=== PATIENT | male | born 1955 | race Caucasian/White ===

== ENCOUNTER → 2017-11-17 | Outpatient (CLI) | payer BC, SELFPAY | PROVIDERS: Family Provider Family Medicine; Referring Provider Family Medicine; Visit Provider Family Medicine | DX: R05 Cough (principal) | CPT/HCPCS: 71020 ==

== ENCOUNTER → 2017-12-08 09:21 | Outpatient (CLI) | payer BC, SELFPAY ==
[2017-12-08 09:44] LABS: Basophils % 0.5 % (0.1-2.0); Eosinophils # 0.2 K/mm3 (0.0-0.4); Eosinophils % 3.5 % (0.1-12.0); Hematocrit 46.1 % (42.0-52.0); Lymphocytes # 0.8 K/mm3 (0.7-4.5); Mean Corpuscular HGB Conc 34.8 g/dL (31.8-35.4); Mean Corpuscular Hemoglobin 31.3 pg (27.0-31.2); Mean Platelet Volume 7.2 fl (7.4-10.4); Monocytes # 0.3 K/mm3 (0.1-1.0); Monocytes % 6.8 % (1.7-9.3); Neutrophils # 3.1 K/mm3 (1.8-7.8); Neutrophils % 71.2 % (37.0-80.0); Platelet Count 235 K/mm3 (142-424); Red Blood Count 5.12 M/mm3 (4.60-6.20); White Blood Count 4.3 K/mm3 (4.8-10.8)
[2017-12-08 11:07] LABS: Alanine Aminotransferase 24 U/L (12-78); Albumin Level 3.9 gm/dL (3.4-5.0); Albumin/Globulin Ratio 1.6 (1.1-1.8); Alkaline Phosphatase 87 U/L (46-116); Anion Gap 11.3 mEq/L (5-15); Aspartate Amino Transferase 18 U/L (15-37); Bilirubin,Total 0.7 mg/dL (0.2-1.0); Blood Urea Nitrogen 11 mg/dL (7-18); Calcium 9.6 mg/dL (8.5-10.1); Carbon Dioxide 27 mmol/L (21.0-32.0); Chloride 107 mmol/L (98-107); Chol/HDL Ratio 3.8 (1-3.5); Cholesterol 251 mg/dL (140-200); Creatinine,Serum 0.77 mg/dL (0.70-1.30); Estimated Glomerular Filt Rate 103 ml/min (>60); GFR (African American) 125 ML/MIN (>60); Globulin 2.5 gm/dl (1.3-3.2); Glucose 91 mg/dL (74-106); HDL Cholesterol 66 mg/dL (27-67); LDL Cholesterol 170 mg/dL (0-130); Potassium 4.3 mmoL/L (3.5-5.1); Sodium 141 mmol/L (136-145); Total Protein,Serum 6.4 gm/dL (6.4-8.2); Triglycerides 76 mg/dL (30-200); VLDL Cholesterol 15 mg/dL (0-40)
== END ==
PROVIDERS: PCP Family Medicine; Visit Provider Family Medicine
DX: E78.00 Pure hypercholesterolemia, unspecified (principal); D69.6 Thrombocytopenia, unspecified
CPT/HCPCS: 36415; 80053; 80061; 85025

== ENCOUNTER 2018-02-18 08:56 | Day surgery (SDC) | payer BC, OTHER, SELFPAY ==
[2018-02-13 10:20] VITALS: BMI 24.0
[2018-02-18] VITALS (8 sets, daily range): BP systolic 100–134; BP diastolic 62–92; PULSE 67–86; RESP 18; TEMP 36.4–36.8; O2SAT 96–99
--- NOTE | 2018-02-18 11:21 | HMH.PROC ---
[facility] Procedure Note Procedure Note:: Colonoscopy Procedure Report: Colonoscopy with cold snare polypectomy Endoscopist: Hesham Mcqueen II, MD Referring physician: Greg Ham MD Date of Procedure: February 18, 2018 Equipment: Olympus 180 variable stiffness pediatric colonoscope Sedation: MAC sedation Indication: Mr. Palacios is a 62-year-old gentleman who is here for initial screening colonoscopy. He reports no abdominal pain, weight loss, change in his bowel habits or rectal bleeding. He reports no family history of colon cancer. Procedure: Prior to the procedure, a history and physical exam was performed, and patient's medications and allergies were reviewed. The risks, benefits and alternatives of the sedation and procedure were discussed with the patient. All questions were answered and informed consent was obtained. The patient was brought to the procedure room. Patient identification and proposed procedure were verified by the physician and the nurse. The patient was placed in a left lateral decubitus position and the scope was passed under direct vision. Throughout the procedure, the patient's blood pressure, pulse, and oxygen saturations were monitored continuously. The colonoscopy was accomplished without difficulty. The patient tolerated the procedure well. Findings: On digital rectal examination there was normal rectal tone. There were no external hemorrhoids. The prostate was 2+, smooth, soft, symmetric without nodules. The colonoscope was introduced through the anal canal to the rectum and advanced to the cecum. The ileocecal valve and appendiceal orifice were identified. The scope was advanced a short distance into the ileum which appeared grossly normal. The scope was then withdrawn into the colon. There was a single 5 mm ascending polyp that was removed via cold snare polypectomy (polyp removed but not retrieved). The remaining cecum, ascending, transverse, descending, sigmoid and rectum were grossly normal. There were no mucosal abnormalities identified. Upon retroflexion within the rectum there were grade 2 internal hemorrhoids. Impression: 1. Diminutive ascending polyp 2. Grade 2 internal hemorrhoids Plan: This polyp was hyperplastic in appearance (by narrowband imaging) and would recommend repeat screening/surveillance colonoscopy again in 10 years. I would encourage fiber bulk supplementation on a long-term daily maintenance basis.
--- NOTE | 2018-02-18 11:25 | P.PCN_ITS ---
[facility] Procedure Note Procedure Note:: Colonoscopy Procedure Report: Colonoscopy with cold snare polypectomy Endoscopist: Hesham Mcqueen II, MD Referring physician: Greg Ham MD Date of Procedure: February 18, 2018 Equipment: Olympus 180 variable stiffness pediatric colonoscope Sedation: MAC sedation Indication: Mr. Palacios is a 62-year-old gentleman who is here for initial screening colonoscopy. He reports no abdominal pain, weight loss, change in his bowel habits or rectal bleeding. He reports no family history of colon cancer. Procedure: Prior to the procedure, a history and physical exam was performed, and patient' s medications and allergies were reviewed. The risks, benefits and alternatives of the sedation and procedure were discussed with the patient. All questions were answered and informed consent was obtained. The patient was brought to the procedure room. Patient identification and proposed procedure were verified by the physician and the nurse. The patient was placed in a left lateral decubitus position and the scope was passed under direct vision. Throughout the procedure, the patient's blood pressure, pulse, and oxygen saturations were monitored continuously. The colonoscopy was accomplished without difficulty. The patient tolerated the procedure well. Findings: On digital rectal examination there was normal rectal tone. There were no external hemorrhoids. The prostate was 2+, smooth, soft, symmetric without nodules. The colonoscope was introduced through the anal canal to the rectum and advanced to the cecum. The ileocecal valve and appendiceal orifice were identified. The scope was advanced a short distance into the ileum which appeared grossly normal. The scope was then withdrawn into the colon. There was a single 5 mm ascending polyp that was removed via cold snare polypectomy ( polyp removed but not retrieved). The remaining cecum, ascending, transverse, descending, sigmoid and rectum were grossly normal. There were no mucosal abnormalities identified. Upon retroflexion within the rectum there were grade 2 internal hemorrhoids. Impression: 1. Diminutive ascending polyp 2. Grade 2 internal hemorrhoids Plan: This polyp was hyperplastic in appearance (by narrowband imaging) and would recommend repeat screening/surveillance colonoscopy again in 10 years. I would encourage fiber bulk supplementation on a long-term daily maintenance basis.
--- NOTE | 2018-02-18 11:27 | SUR.OPER ---
POLYP IS NOT RECOVERED.
--- NOTE | 2018-02-18 15:38 | HMH.ANESCL ---
[facility] Anesthesia Checklist - Patient Identification Patient Identification: Arm Band - Structural Data Admitted From: Home Planned Operative Procedure/s: colonoscopy Consent for Planned Operative Procedure(s) Verified: Yes Verified Documents: Surgical Consent, History and Physical - NPO Status Verified Time NPO: 00:00 - Additional verifications Anesthesia Reactions: No - Airway Assessment C-Spine Mobility Assessed: Yes (mp2) TMJ Mobility Assessed: Yes Dentition: Good Dentition - Neurological Assessment Level of Consciousness: Awake, Alert - Anesthesia Plan Anesthesia Risk discussed: Yes Anesthesia Plan: Verified ASA Class: I Anesthesia Type: MAC [facility] Anesthesia HX I have reviewed the patient's past medical history: Yes Medical History: Denies:: Diabetes Mellitus Type 1, Diabetes Mellitus Type 2, Internal Pacemaker, Lung Disease, Seizures Other Surgeries: Yes: Appendectomy (chey,axillary cyst), Cardiac Catheterization. No: Pacemaker
== END 2018-02-18 12:20 | disposition home or self-care (01) ==
PROVIDERS: Family Provider Family Medicine; PCP Family Medicine; Visit Provider Internal Medicine Gastroenterology
PROC: 0DJD8ZZ Inspection of Lower Intestinal Tract, Via Natural or Artificial Opening Endoscopic (ICD-10-PCS; CPT 45378; principal; 2018-02-18 10:00)
DX: Z12.11 Encounter for screening for malignant neoplasm of colon (principal); K63.5 Polyp of colon; K64.1 Second degree hemorrhoids
CPT/HCPCS: 45385

== ENCOUNTER 2018-10-16 09:38 | Inpatient (IN) ==
--- NOTE | 2018-10-16 09:49 | Emergency Department Note ---
ED Disposition Clinical Impression: Upper abdominal pain, Elevated liver enzymes Disposition: Still a Patient Condition on Discharge: Fair - Critical Care Critical Care Time: No Attestation: On 10/16/18, the high probability of a clinically significant, sudden or life threatening deterioration of the following system(s) required my full and direct attention, intervention and personal management. The time I documented below is in addition to time spent performing reported procedures but includes the following listed in this critical care notation. Medical Decision Making - Nikhil Inquiry Pt receiving controlled substance: No Vital Signs: 10/16/18 09:43 10/16/18 10:20 10/16/18 10:56 Temperature 98.3 F Temperature Source Oral Pulse Rate [Left Radial] 75 79 72 Respiratory Rate 20 Blood Pressure [Right Arm] 162/62 H 158/76 H 140/62 Blood Pressure Mean [Right Arm] 95 103 88 Blood Pressure Source [Right Arm] Automatic Cuff Automatic Cuff Automatic Cuff Blood Pressure Position [Right Arm] Sitting Sitting Sitting 02 Sat by Pulse Oximetry 97 97 97 Oxygen Delivery Method Room Air Room Air Room Air - Lab Data Lab Results 10/16/18 10:03: WBC 10.1, RBC 4.88, Hgb 15.6, Hct 46.6, MCV 95.5 H, MCH 31.9 H, MCHC 33.4, RDW 13.6, Plt Count 240, MPV 6.9 L, Neut % (Auto) 90.6 H, Lymph % (Auto) 4.8 L, [place] % (Auto) 4.1, Eos % (Auto) 0.4, Baso % (Auto) 0.1, Neut # (Auto) 9.1 H, Lymph # (Auto) 0.5 L, [place] # (Auto) 0.4, Eos # (Auto) 0.0, Baso # (Auto) 0.0, Total Counted 100, Neutrophils % (Manual) 91 H, Lymphocytes % (Manual) 4 L, Monocytes % (Manual) 5, Platelet Estimate Normal, RBC Morphology Normal 10/16/18 10:03: Sodium 140, Potassium 3.8, Chloride 103, Carbon Dioxide 29, Anion Gap 11.8, BUN 12, Creatinine 0.77, Estimated Creat Clear 102, Estimated GFR 103, Est GFR ( Amer) 124, Glucose 131 H, Calcium 10.4 H, Total Bilirubin 3.8 H, AST 779 H*, ALT 636 H*, Alkaline Phosphatase 146 H, Troponin I < 0.02, Total Protein 7.1, Albumin 3.9, Globulin 3.2, Albumin/Globulin Ratio 1.2, Amylase 37, Lipase 177 10/16/18 10:03: PT 9.5, INR 0.92 10/16/18 11:50: Urine Color [place], Urine Appearance Clear, Urine pH 7.0, Ur Specific [place] 1.015, Urine Protein Negative, Urine Glucose (UA) Negative, Urine Ketones Negative, Urine Blood Negative, Urine Nitrate Negative, Urine Bilirubin 2+ A, Urine Urobilinogen 1.0, Ur Leukocyte Esterase Negative, Urine RBC None, Urine WBC Occasional, Ur Squamous Epith Cells Occasional, Urine Bacteria 1+, Urine Mucus Trace Result diagrams: 10/16/18 10:03 10/16/18 10:03 Orders (Tests/Meds): ED MEDICATIONS Discontinued Medications Generic Name Dose Route Start Last Admin Trade Name Freq PRN Reason Stop Dose Admin Famotidine 20 mg 10/16/18 10:00 10/16/18 10:05 Pepcid 20mg/2ml Vial IV 10/16/18 10:01 20 mg ONCE ONE Administration Sodium Chloride 500 mls @ 999 mls/hr 10/16/18 10:00 10/16/18 10:05 Sod Chlor 0.9% 1000ml Bag IV 10/16/18 10:30 999 mls/hr .Q31M LIV Administration Ketorolac Tromethamine 30 mg 10/16/18 09:56 10/16/18 10:15 Toradol 30mg/Ml Vial IV 10/16/18 09:57 30 mg ONCE ONE Administration Metoclopramide HCl 5 mg 10/16/18 10:00 10/16/18 10:05 Reglan 10mg/2ml Vial IVP 10/16/18 10:01 5 mg ONCE ONE Administration Ondansetron HCl 4 mg 10/16/18 09:56 10/16/18 10:15 Zofran 4mg/2ml Vial IV 10/16/18 09:57 4 mg ONCE ONE Administration ORDERS Category Date Time Status Hepatitis Panel (4) Stat Lab 10/16/18 10:03 Received Urinalysis and Microscopic Stat Lab 10/16/18 11:50 Ordered - ECG Data Tracing #1 EKG interpreted by Jim Givens MD: Rhythm: sinus Rate: 76 [place]: normal Ectopy: none Conduction: normal ST Segment Changes: none T Wave Changes: none Q Waves: none No evidence of acute ischemia or injury Normal electrocardiogram - Physician Consults Physician Consulted: Frnac Time: 12:46 Reason -: Pt condition Comment/Response: Requests to admit the patient to the hospital. We discussed the patient's clinical information, including history, exam, laboratory and radiology results and ED course. Per hospital procedure, I will write temporary bridge inpatient orders on the patient. Specific orders requested by the admitting physician: IV fluids, follow hepatic enzymes, stop rosuvastatin - Reevaluation(s) Time: 12:30 Reevaluation #1: Patient states he feels "pretty good right now". Discussed results. Medical Decision Narrative: IMPRESSION: 1. No acute abdominal or pelvic findings. 2. Mildly enlarged prostate. Urinary bladder wall is slightly thickened could be due to chronic bladder outlet obstruction, contracted state, or underlying infection/inflammation. Dictated By: Rl King MD Signed By: <Electronically signed by Rl King MD in OV> 10/16/18 1216 General Adult HPI - General Chief complaint: Abdominal Pain Stated complaint: abdominal pain Time Seen by Provider: 10/16/18 10:00 Mode of Arrival: Ambulatory Limitations: No Limitations Description of Symptoms (Recalled from ER Triage Doc. by RN): PT states that he is having pain in his upper abdomen that runs all across his lower ribs that started t/o the night but has increased in pain this morning. Denies any n/v - History of Present Illness HPI narrative: Diffuse upper abdominal pain that started about 4:56 PM yesterday. Constant and persisted all night. Unable to sleep. Unable to eat today. Nausea, but no vomiting, diarrhea, constipation, or fever. Had a cholecystectomy last year, pain feels like his previous gallbladder pain. He is a nondrinker. Does not use NSAIDs regularly. - Related Data Home Medications Medication Instructions Recorded Confirmed Rosuvastatin Calcium 20 mg PO DAILY 10/16/18 10/16/18 Allergies Allergy/AdvReac Type Severity Reaction Status Date / Time No Known Allergies Allergy Verified 02/18/18 09:21 [facility] History I have reviewed the patient's past medical history: Yes Medical History: Denies:: Diabetes Mellitus Type 1, Diabetes Mellitus Type 2, Internal Pacemaker, Lung Disease, Seizures Other Surgeries: Yes: Appendectomy (chey,axillary cyst), Cardiac Catheterization. No: Pacemaker - Social History Alcohol Intake: current Alcohol Intake Frequency:: holidays/special occasions only - Psychiatric History Expresses thoughts of harming self/others: None Suicide Plan Description: No Plan ROS Obtained: Yes All systems reviewed & no additional complaints - Constitutional Constitutional: Denies fever(s) - Cardiovascular Cardiovascular: Denies chest pain - Respiratory Respiratory: No dyspnea - Gastrointestinal Gastrointestingal: Reports: abdominal pain, nausea. Denies: constipation, diarrhea, vomiting - Genitourinary Male Genitourinary: Denies difficulty urinating, Denies flank pain Physical Exam - General General appearance: alert, other (Appears uncomfortable) - Head Head exam: atraumatic, normocephalic - Eye Eye exam: Present: normal appearance, PERRL, EOMI - ENT ENT exam: Present: mucous membranes moist - Chest Chest inspection: Present: normal inspection, symmetric chest wall rise - Respiratory Respiratory exam: Present: normal lung sounds bilaterally. Absent: respiratory distress - Cardiovascular Cardiovascular exam: Present: regular rate, normal rhythm, normal heart sounds - Abdominal Exam Abdominal exam: Present: soft, tenderness. Absent: guarding, rebound, rigidity Abdominal tenderness: Present: RUQ, LUQ, epigastrium - Extremities Exam Extremities exam: Present: normal inspection - Neurological Exam Neurological exam: Present: alert, oriented X3 - Psychiatric Psychiatric exam: Present: normal affect, normal mood - Skin Skin exam: Present: warm, dry, pallor
[2018-10-16 10:14] LABS: Basophils % 0.1 % (0.1-2.0); Eosinophils % 0.4 % (0.1-12.0); Hematocrit 46.6 % (42.0-52.0); Hemoglobin 15.6 g/dL (14.1-18.0); Lymphocytes # 0.5 K/mm3 (0.7-4.5); Lymphocytes % 4.8 % (10-50); Mean Corpuscular HGB Conc 33.4 g/dL (31.8-35.4); Mean Corpuscular Hemoglobin 31.9 pg (27.0-31.2); Mean Corpuscular Volume 95.5 fl (80-94); Mean Platelet Volume 6.9 fl (7.4-10.4); Monocytes # 0.4 K/mm3 (0.1-1.0); Monocytes % 4.1 % (1.7-9.3); Neutrophils # 9.1 K/mm3 (1.8-7.8); Neutrophils % 90.6 % (37.0-80.0); Platelet Count 240 K/mm3 (142-424); Red Blood Count 4.88 M/mm3 (4.60-6.20); Red Cell Distribution Width 13.6 % (11.5-17.5); White Blood Count 10.1 K/mm3 (4.8-10.8)
[2018-10-16 10:38] LABS: Lymphocytes % 4 % (10-50); Monocytes % 5 % (2-9); Neutrophils % 91 % (42-76); RBC Morphology Normal; Total Cells Counted 100
[2018-10-16 10:39] LABS: Alanine Aminotransferase 636 U/L (12-78); Albumin Level 3.9 gm/dL (3.4-5.0); Albumin/Globulin Ratio 1.2 (1.1-1.8); Alkaline Phosphatase 146 U/L (46-116); Amylase 37 U/L (25-115); Anion Gap 11.8 mEq/L (5-15); Aspartate Amino Transferase 779 U/L (15-37); Bilirubin,Total 3.8 mg/dL (0.2-1.0); Blood Urea Nitrogen 12 mg/dL (7-18); Calcium 10.4 mg/dL (8.5-10.1); Carbon Dioxide 29 mmol/L (21.0-32.0); Chloride 103 mmol/L (98-107); Globulin 3.2 gm/dl (1.3-3.2); Glucose 131 mg/dL (74-106); Lipase 177 u/L (73-393); Potassium 3.8 mmoL/L (3.5-5.1); Sodium 140 mmol/L (136-145); Total Protein,Serum 7.1 gm/dL (6.4-8.2)
[2018-10-16 11:03] LABS: INR 0.92 (0.9-1.1); Prothrombin Time 9.5 seconds (9.4-11.8)
[2018-10-16 11:57] LABS: Microscopic, Urine URINE MICROSCOPIC (MICROSCOPIC)
[2018-10-16 12:13] LABS: Appearance,Urine CLEAR (Clear); Blood, Urine Negative (Negative); Color,Urine ORANGE (Yellow); Glucose,Urine (UA) Negative (Negative); Ketones,Urine Negative (Negative); Leukocyte Esterase,Urine Negative (Negative); Protein,Urine Negative (Negative); Specific Gravity, Urine 1.015 (1.005-1.030)
[2018-10-16 12:18] LABS: Bilirubin,Urine 2+ (Negative)
[2018-10-16 12:23] LABS: Bacteria,Urine 1+ /lpf; Mucus,Urine Trace /lpf; Squamous Epithelial Cell,Urine Occasional #/hpf (0-5); WBC,Urine Occasional #/hpf (0-3)
--- NOTE | 2018-10-16 13:40 | Pharmacy Consult Notes ---
[facility] Pharmacy VTE Monitoring - Patient Demographics Admission date: 10/16/18 Report Date: 10/16/18 Time: 13:40 Allergies/Adverse Reactions: Patient Allergies No Known Allergies Allergy (Verified 02/18/18 09:21) Height: 1.93 m Weight: 92.986 kg Patient Problems: Current Active Problems Upper abdominal pain (Acute) Elevated liver enzymes (Acute) - VTE Risk Labs: VTE Related Lab Results Hgb 15.6 g/dL (14.1-18.0) 10/16/18 10:03 Hct 46.6 % (42.0-52.0) 10/16/18 10:03 Plt Count 240 K/mm3 (142-424) 10/16/18 10:03 PT 9.5 seconds (9.4-11.8) 10/16/18 10:03 INR 0.92 (0.9-1.1) 10/16/18 10:03 BUN 12 mg/dL (7-18) 10/16/18 10:03 Creatinine 0.77 mg/dL (0.70-1.30) 10/16/18 10:03 Estimated Creat Clear 102 mL/min (50-200) 10/16/18 10:03 - Prophylaxis VTE Prophylaxis Ordered?: Yes Types of VTE Prophylaxis: TEDS Knee High Location of Applied Device: Bilateral Lower Extremeties
--- NOTE | 2018-10-16 14:06 | History & Physical Report ---
*Admission Date: 10/16/18 *Chief complaint: abdominal pain *History of present illness: Mr. Palacios is a 63yo male who began having diffuse upper abdominal pain around 4:56 PM yesterday. The patient has been constant and persisted all night. He was unable to sleep or eat today. He had had some nausea but no vomiting, diarrhea, constipation, or fever. Of note, he had a cholecystectomy last year, but he states the pain feels like his previous gallbladder pain. He is a nondrinker. Does not use NSAIDs regularly. His LFT's were elevated but his abdominal CT showed nothing acute. He will be admitted for further evaluation and treatment. [facility] History Medical History: Reports:: Coronary Artery Disease, Gall Bladder Disease, Hiatal Hernia, Hyperlipidemia Denies:: Diabetes Mellitus Type 1, Diabetes Mellitus Type 2, Internal Pacemaker, Lung Disease, Seizures Other Surgeries: Yes: Appendectomy (chey,axillary cyst), Cardiac Catheterization, Cholecystectomy. No: Pacemaker - *Social History Alcohol Intake: current Alcohol Intake Frequency:: holidays/special occasions only - Psychiatric History Expresses thoughts of harming self/others: None Suicide Plan Description: No Plan *Family Hx:: Coronary Artery Disease, Diabetes, Heart Attack, Hypertension, Stroke Review of Systems - Constitutional Denies chills, Denies fever(s) - Eyes Denies blurry vision, Denies double vision - ENT Denies nasal congestion, Denies sore throat - *Cardiovascular Denies chest pain, Denies rapid, pounding, or irregular heartbeat - *Respiratory Denies cough, Denies shortness of breath - *Gastrointestinal Reports abdominal pain (epigastric), Reports nausea, Denies loose stools, Denies vomiting - *Genitourinary Denies difficulty urinating, Denies painful urination - *Musculoskeletal Denies joint pain - *Neurologic Denies headache(s), Denies dizziness, Denies weakness Meds Home Medications Medication Instructions Recorded Confirmed Type Meloxicam 15 mg PO DAILY 10/16/18 10/16/18 History Omeprazole Magnesium [Prilosec Otc 20 mg PO DAILY 10/16/18 10/16/18 History 20mg Tab] Rosuvastatin Calcium 20 mg PO DAILY 10/16/18 10/16/18 History Allergies Allergy/AdvReac Type Severity Reaction Status Date / Time No Known Allergies Allergy Verified 02/18/18 09:21 Exam Vital signs and Labs for Last 24 Hours: Temp Pulse Resp BP Pulse Ox 98.9 F 91 H 18 144/93 H 97 10/16/18 13:52 10/16/18 13:52 10/16/18 13:52 10/16/18 13:52 10/16/18 13:52 Laboratory Results - last 24 hr 10/16/18 10:03: WBC 10.1, RBC 4.88, Hgb 15.6, Hct 46.6, MCV 95.5 H, MCH 31.9 H, MCHC 33.4, RDW 13.6, Plt Count 240, MPV 6.9 L, Neut % (Auto) 90.6 H, Lymph % (Auto) 4.8 L, [place] % (Auto) 4.1, Eos % (Auto) 0.4, Baso % (Auto) 0.1, Neut # (Auto) 9.1 H, Lymph # (Auto) 0.5 L, [place] # (Auto) 0.4, Eos # (Auto) 0.0, Baso # (Auto) 0.0, Total Counted 100, Neutrophils % (Manual) 91 H, Lymphocytes % (Manual) 4 L, Monocytes % (Manual) 5, Platelet Estimate Normal, RBC Morphology Normal 10/16/18 10:03: Sodium 140, Potassium 3.8, Chloride 103, Carbon Dioxide 29, Anion Gap 11.8, BUN 12, Creatinine 0.77, Estimated Creat Clear 102, Estimated GFR 103, Est GFR ( Amer) 124, Glucose 131 H, Calcium 10.4 H, Total Bilirubin 3.8 H, AST 779 H*, ALT 636 H*, Alkaline Phosphatase 146 H, Troponin I < 0.02, Total Protein 7.1, Albumin 3.9, Globulin 3.2, Albumin/Globulin Ratio 1.2, Amylase 37, Lipase 177 10/16/18 10:03: PT 9.5, INR 0.92 10/16/18 11:50: Urine Color [place], Urine Appearance Clear, Urine pH 7.0, Ur Specific [place] 1.015, Urine Protein Negative, Urine Glucose (UA) Negative, Urine Ketones Negative, Urine Blood Negative, Urine Nitrate Negative, Urine Bilirubin 2+ A, Urine Urobilinogen 1.0, Ur Leukocyte Esterase Negative, Urine RBC None, Urine WBC Occasional, Ur Squamous Epith Cells Occasional, Urine Bacter ia 1+, Urine Mucus Trace I & O for Last 24 hours: Intake & Output 10/14/18 10/15/18 10/16/18 10/17/18 11:59 11:59 11:59 11:59 Weight 205 lb 199 lb 8 oz - Constitutional no acute distress - *Routine HEENT Exam Head: Present: normocephalic Eye: Present: EOMI, PERRL ENT: Present: mucous membranes moist - *Routine Neck Exam Present: supple. Absent: lymphadenopathy - *Routine Respiratory Exam Present: CTA bilaterally - *Routine Cardiovascular Exam Present: RRR - *Routine Abdominal Exam Present: soft, normoactive bowel sounds, tenderness (epigastric area), distended. Absent: rebound, guarding - *Routine Extremities Exam Absent: cyanosis, clubbing, edema - *Routine Skin Exam Present: warm. Absent: rash - *Routine Neurological Exam Present: alert, oriented X3 H&P: Result - Impressions Abd CT 1. No acute abdominal or pelvic findings. 2. Mildly enlarged prostate. Urinary bladder wall is slightly thickened could be due to chronic bladder outlet obstruction, contracted state, or underlying in fection/inflammation. Assessment and Plan (1) Upper abdominal pain Current visit: Yes Status: Acute Category: Medical Code(s): R10.10 - Upper abdominal pain, unspecified (2) Elevated liver enzymes Current visit: Yes Status: Acute Category: Medical Code(s): R74.8 - Abnormal levels of other serum enzymes (3) Enlarged prostate Current visit: Yes Status: Acute Category: Medical Code(s): N40.0 - Benign prostatic hyperplasia without lower urinary tract symptoms (4) Coronary artery disease Current visit: Yes Status: Chronic Category: Medical Code(s): I25.10 - Atherosclerotic heart disease of [place] coronary artery without angina pectoris (5) Hyperlipidemia Current visit: Yes Status: Chronic Category: Medical Code(s): E78.5 - Hyperlipidemia, unspecified - Assessment and plan all Dx Assessment and Plan for all problems:: Pt will be admitted and started on pain medication, antiemetics, levsin, and IVF's. Will get a hepatitis profile and a PSA.
[2018-10-17 06:31] LABS: Albumin Level 3.1 gm/dL (3.4-5.0); Bilirubin,Direct 3.9 mg/dL (0.0-0.2); Total Protein,Serum 5.8 gm/dL (6.4-8.2)
[2018-10-17 06:47] LABS: Bilirubin,Indirect 2.3 mg/dL (0.0-0.9); Bilirubin,Total 6.2 mg/dL (0.2-1.0)
[2018-10-17 08:20] LABS: Hepatitis B Core Antibody IgM Negative (Negative); Hepatitis B Surface Antigen Negative (Negative)
--- NOTE | 2018-10-17 09:21 | Progress Note ---
Internal Medicine - PN: Subj *Date: 10/17/18 *Time: 09:19 Interval history: The patient feels much better today. He is not having abdominal pain. He ate breakfast. His liver enzyme numbers have improved. Exam Vital signs and Labs for Last 24 Hours: Temp Pulse Resp BP Pulse Ox 98.3 F 64 18 129/64 94 L 10/17/18 08:00 10/17/18 08:00 10/17/18 08:00 10/17/18 08:00 10/17/18 08:00 Laboratory Results - last 24 hr 10/16/18 10:03: WBC 10.1, RBC 4.88, Hgb 15.6, Hct 46.6, MCV 95.5 H, MCH 31.9 H, MCHC 33.4, RDW 13.6, Plt Count 240, MPV 6.9 L, Neut % (Auto) 90.6 H, Lymph % (Auto) 4.8 L, [place] % (Auto) 4.1, Eos % (Auto) 0.4, Baso % (Auto) 0.1, Neut # (Auto) 9.1 H, Lymph # (Auto) 0.5 L, [place] # (Auto) 0.4, Eos # (Auto) 0.0, Baso # (Auto) 0.0, Total Counted 100, Neutrophils % (Manual) 91 H, Lymphocytes % (Manual) 4 L, Monocytes % (Manual) 5, Platelet Estimate Normal, RBC Morphology Normal 10/16/18 10:03: Sodium 140, Potassium 3.8, Chloride 103, Carbon Dioxide 29, Anion Gap 11.8, BUN 12, Creatinine 0.77, Estimated Creat Clear 102, Estimated GFR 103, Est GFR ( Amer) 124, Glucose 131 H, Calcium 10.4 H, Total Bilirubin 3.8 H, AST 779 H*, ALT 636 H*, Alkaline Phosphatase 146 H, Troponin I < 0.02, Total Protein 7.1, Albumin 3.9, Globulin 3.2, Albumin/Globulin Ratio 1.2, Amylase 37, Lipase 177 10/16/18 10:03: PT 9.5, INR 0.92 10/16/18 11:50: Urine Color [place], Urine Appearance Clear, Urine pH 7.0, Ur Specific [place] 1.015, Urine Protein Negative, Urine Glucose (UA) Negative, Urine Ketones Negative, Urine Blood Negative, Urine Nitrate Negative, Urine Bilirubin 2+ A, Urine Urobilinogen 1.0, Ur Leukocyte Esterase Negative, Urine RBC None, Urine WBC Occasional, Ur Squamous Epith Cells Occasional, Urine Bacteria 1+, Urine Mucus Trace 10/17/18 05:40: Total Bilirubin 6.2 H, Direct Bilirubin 3.9 H, Indirect Bilirubin 2.3 H, AST 226 H D, ALT 451 H*, Alkaline Phosphatase 130 H, Total Protein 5.8 L, Albumin 3.1 L D I & O for Last 24 hours: Intake & Output 10/14/18 10/15/18 10/16/18 10/17/18 11:59 11:59 11:59 11:59 Intake Total 2519 / 2519 Output Total 400 / 400 Balance 2118 / 2118 Weight 205 lb 199 lb 8 oz - Constitutional no acute distress - *Routine HEENT Exam Head: Present: normocephalic Eye: Present: EOMI, PERRL, conjunctival icterus ENT: Present: mucous membranes moist - *Routine Respiratory Exam Present: CTA bilaterally - *Routine Cardiovascular Exam Present: RRR - *Routine Abdominal Exam Present: soft, normoactive bowel sounds. Absent: tenderness - *Routine Rectal Exam Digital: Present: normal inspection. Absent: lesions Prostate: Present: enlargement (Slightly enlarged. The prostate is not firm. There is no nodularity.) Assessment and Plan (1) Upper abdominal pain Current visit: Yes Status: Acute Category: Medical Code(s): R10.10 - Upper abdominal pain, unspecified (2) Elevated liver enzymes Current visit: Yes Status: Acute Category: Medical Code(s): R74.8 - Abnormal levels of other serum enzymes (3) Enlarged prostate Current visit: Yes Status: Acute Category: Medical Code(s): N40.0 - Benign prostatic hyperplasia without lower urinary tract symptoms (4) Coronary artery disease Current visit: Yes Status: Chronic Category: Medical Code(s): I25.10 - Atherosclerotic heart disease of [place] coronary artery without angina pectoris (5) Hyperlipidemia Current visit: Yes Status: Chronic Category: Medical Code(s): E78.5 - Hyperlipidemia, unspecified - Assessment and plan all Dx Assessment and Plan for all problems:: Continue present regimen
[2018-10-17 19:51] LABS: Hepatitis C Antibody 0.2 s/co ratio (0.0-0.9)
[2018-10-18 06:09] LABS: Albumin Level 3.1 gm/dL (3.4-5.0); Anion Gap 10.6 mEq/L (5-15); Bilirubin,Total 2.2 mg/dL (0.2-1.0); Calcium 9.4 mg/dL (8.5-10.1); Potassium 3.6 mmoL/L (3.5-5.1); Total Protein,Serum 6.1 gm/dL (6.4-8.2)
--- NOTE | 2018-10-18 09:15 | Progress Note ---
Internal Medicine - PN: Subj *Date: 10/18/18 *Time: 08:30 Interval history: Pt is sitting up in the chair watching tv. He reports feeling much better other than some RUQ discomfort. He denies SOB or GI sxs. Exam Vital signs and Labs for Last 24 Hours: Temp Pulse Resp BP Pulse Ox 98.4 F 86 18 134/80 94 L 10/18/18 04:35 10/18/18 04:35 10/18/18 04:35 10/18/18 04:35 10/18/18 04:35 Laboratory Results - last 24 hr 10/16/18 10:03: Hepatitis A IgM Ab Negative, Hep Bs Antigen Negative, Hep B Core IgM Ab Negative, Hepatitis C Antibody 0.2 10/18/18 05:45: Sodium 138, Potassium 3.6, Chloride 105, Carbon Dioxide 26, Anion Gap 10.6, BUN 8 D, Creatinine 0.79, Estimated Creat Clear 99, Estimated GFR 100, Est GFR ( Amer) 121, Glucose 121 H, Calcium 9.4, Total Bilirubin 2.2 H, AST 120 H D, ALT 332 H*, Alkaline Phosphatase 129 H, Total Protein 6.1 L, Albumin 3.1 L, Globulin 3.0, Albumin/Globulin Ratio 1.0 L I & O for Last 24 hours: Intake & Output 10/15/18 10/16/18 10/17/18 10/18/18 11:59 11:59 11:59 11:59 Intake Total 2519 / 2519 1804 / 1804 Output Total 400 / 400 Balance 2119 / 2119 1804 / 1804 Weight 205 lb 199 lb 8 oz - Constitutional no acute distress - *Routine HEENT Exam Head: Present: normocephalic, atraumatic ENT: Present: mucous membranes moist - *Routine Respiratory Exam Present: CTA bilaterally - *Routine Cardiovascular Exam Present: RRR - *Routine Abdominal Exam Present: soft, normoactive bowel sounds. Absent: distended, rebound, guarding, rigid Comments: mild and diffuse RUQ and epigastric ttp - *Routine Extremities Exam Present: full ROM, pulses intact. Absent: edema, calf tenderness - *Routine Neurological Exam Present: alert, oriented X3, moving all extremities, normal speech Assessment and Plan (1) Upper abdominal pain Current visit: Yes Status: Acute Category: Medical Code(s): R10.10 - Upper abdominal pain, unspecified (2) Elevated liver enzymes Current visit: Yes Status: Acute Category: Medical Code(s): R74.8 - Abnormal levels of other serum enzymes (3) Enlarged prostate Current visit: Yes Status: Acute Category: Medical Code(s): N40.0 - Benign prostatic hyperplasia without lower urinary tract symptoms (4) Coronary artery disease Current visit: Yes Status: Chronic Category: Medical Code(s): I25.10 - Atherosclerotic heart disease of [place] coronary artery without angina pectoris (5) Hyperlipidemia Current visit: Yes Status: Chronic Category: Medical Code(s): E78.5 - Hyperlipidemia, unspecified - Assessment and plan all Dx Assessment and Plan for all problems:: per Dr. Bruner
[2018-10-19 06:12] LABS: Bilirubin,Direct 0.8 mg/dL (0.0-0.2); Bilirubin,Indirect 0.5 mg/dL (0.0-0.9); Bilirubin,Total 1.3 mg/dL (0.2-1.0); Total Protein,Serum 6.2 gm/dL (6.4-8.2)
--- NOTE | 2018-10-19 10:24 | Progress Note ---
Internal Medicine - PN: Subj *Date: 10/19/18 *Time: 10:21 Interval history: Mr. Palacios is doing better. He still has some right upper quadrant discomfort. He has not required morphine since yesterday afternoon. His liver enzymes have significantly improved Laboratory Tests 10/16/18 10/17/18 10/18/18 10:03 05:40 05:45 Total Bilirubin 3.8 H 6.2 H 2.2 H Direct Bilirubin Indirect Bilirubin AST 779 H* 226 H D 120 H D ALT 636 H* 451 H* 10/19/18 05:35 Total Bilirubin 1.3 H Direct Bilirubin 0.8 H Indirect Bilirubin 0.5 AST 74 H D ALT 272 H I will discharge him today. See medicine list. He will continue on hyoscyamine. For pain I have prescribed ibuprofen. 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 Exam Vital signs and Labs for Last 24 Hours: Temp Pulse Resp BP Pulse Ox 98.5 F 62 16 122/69 99 10/19/18 08:00 10/19/18 08:00 10/19/18 08:00 10/19/18 08:00 10/19/18 08:00 Laboratory Results - last 24 hr 10/19/18 05:35: Total Bilirubin 1.3 H, Direct Bilirubin 0.8 H, Indirect Bilirubin 0.5, AST 74 H D, ALT 272 H, Alkaline Phosphatase 137 H, Total Protein 6.2 L, Albumin 3.0 L I & O for Last 24 hours: Intake & Output 10/16/18 10/17/18 10/18/18 10/19/18 11:59 11:59 11:59 11:59 Intake Total 2519 / 2519 2044 / 2044 960 / 960 Output Total 400 / 400 Balance 2119 / 2119 4 / 2044 960 / 960 Weight 205 lb 199 lb 8 oz - Constitutional no acute distress - *Routine HEENT Exam Eye: Present: EOMI, PERRL ENT: Present: mucous membranes moist - *Routine Respiratory Exam Present: CTA bilaterally - *Routine Abdominal Exam Present: normoactive bowel sounds. Absent: tenderness - *Routine Extremities Exam Absent: cyanosis, clubbing, edema Assessment and Plan (1) Upper abdominal pain Current visit: Yes Status: Acute Category: Medical Code(s): R10.10 - Upper abdominal pain, unspecified (2) Elevated liver enzymes Current visit: Yes Status: Acute Category: Medical Code(s): R74.8 - Abnormal levels of other serum enzymes (3) Enlarged prostate Current visit: Yes Status: Acute Category: Medical Code(s): N40.0 - Benign prostatic hyperplasia without lower urinary tract symptoms (4) Coronary artery disease Current visit: Yes Status: Chronic Category: Medical Code(s): I25.10 - Atherosclerotic heart disease of [place] coronary artery without angina pectoris (5) Hyperlipidemia Current visit: Yes Status: Chronic Category: Medical Code(s): E78.5 - Hyperlipidemia, unspecified - Assessment and plan all Dx Assessment and Plan for all problems:: Discharge to home. Follow-up Sunday. Arrangements will be made for ERCP. Hyoscyamine and ibuprofen prescriptions.
--- NOTE | 2018-10-19 21:59 | Discharge Summary ---
General - General Admission date:: 10/16/18 Discharge date: 10/19/18 HPI HPI: Mr. Palacios is a 63yo male who began having diffuse upper abdominal pain around 4:56 PM yesterday. The pain has been constant and persisted all night. He was unable to sleep or eat today. He has had some nausea but no vomiting, diarrhea, constipation, or fever. Of note, he had a cholecystectomy last year, but he states the pain feels like his previous gallbladder pain. He is a nondrinker. Does not use NSAIDs regularly. His LFT's were elevated but his abdominal CT showed nothing acute. He will be admitted for further evaluation and treatment. Hospital Course Hospital Course: The patient was admitted and started on pain medication, antiemetics, levsin, and IVF's. A hepatitis profile was ordered d/t elevated LFT's. It was normal. By the next day, the patient was feeling better and his LFT's were improving, however he did have a recurrent RUQ abdominal pain. It was felt he could have had some type of episodic obstruction and would need GI f/u on an outpatient basis. He did experience some swelling of his right arm after his IV infiltrated therefore it was wrapped with an RIKY. His LFT's continued to improve as did his pain. He was stable to be discharged home on ibuprofen and levsin. He will f/u in the office and arrangements will be made for an ERCP. Objective Vital signs: Temp Pulse Resp BP Pulse Ox 98.5 F 62 16 122/69 99 10/19/18 08:00 10/19/18 08:00 10/19/18 08:00 10/19/18 08:00 10/19/18 08:00 Narrative: - Constitutional no acute distress - *Routine HEENT Exam Head: Present: normocephalic Eye: Present: EOMI, PERRL ENT: Present: mucous membranes moist - *Routine Neck Exam Present: supple. Absent: lymphadenopathy - *Routine Respiratory Exam Present: CTA bilaterally - *Routine Cardiovascular Exam Present: RRR - *Routine Abdominal Exam Present: soft, normoactive bowel sounds, tenderness (epigastric area), distended. Absent: rebound, guarding - *Routine Extremities Exam Absent: cyanosis, clubbing, edema - *Routine Skin Exam Present: warm. Absent: rash - *Routine Neurological Exam Present: alert, oriented X3 Results Labs on day of discharge: Labs from last 24 hours 10/19/18 05:35 Total Bilirubin 1.3 H Direct Bilirubin 0.8 H Indirect Bilirubin 0.5 AST 74 H D ALT 272 H Alkaline Phosphatase 137 H Total Protein 6.2 L Albumin 3.0 L DS: Diagnosis - Discharge Diagnosis (1) Upper abdominal pain Status: Acute (2) Elevated liver enzymes Status: Acute (3) Enlarged prostate Status: Acute (4) Coronary artery disease Status: Chronic (5) Hyperlipidemia Status: Chronic Discharge Plan - Patient Discharge Instructions ACTIVITY: Limited activity DIET: low fat, low cholesterol Additional Instructions: Nursing Diagnosis: Knowledge Deficit Disease/Condition Goal(s): Education of disease process Instruction(s): Follow provider plan/instructions (See attached discharge education) Follow/up with primary care provider as instructed in discharge packet Patient Instructions: DI for Abdominal Pain-Adult, DI for Coronary Artery Disease - Follow up Plan Follow up with: Jackie Bruner MD [Primary Care Provider] - 10/21/18 Disposition: Home, Self-Custodial Medications: Home Medications Medication Instructions Recorded Confirmed Type Albuterol Sulfate [Albuterol HFA 1 - 2 puffs IH Q4-6H PRN 10/16/18 10/16/18 History Inhaler] Fluticasone Propionate 1 spray NOSTRIL-B DAILYP PRN 10/16/18 10/16/18 History Omeprazole Magnesium [Prilosec Otc 20 mg PO DAILY PRN 10/16/18 10/16/18 History 20mg Tab] Cetirizine HCl 10 mg PO DAILY 10/17/18 10/17/18 History Prescriptions/Medication Reconciliation: New Ibuprofen [Ibuprofen 600mg Tablet] 600 mg PO QID #60 tab Hyoscyamine Sulfate [Levsin 0.125mg tablet] 0.125 mg PO QID #90 tab.rapdis Continue Omeprazole Magnesium [Prilosec Otc 20mg Tab] 20 mg PO DAILY PRN PRN Reason: GERD Fluticasone Propionate 1 spray NOSTRIL-B DAILYP PRN PRN Reason: ALLERGY SYMPTOMS Albuterol Sulfate [Albuterol HFA Inhaler] 1 - 2 puffs IH Q4-6H PRN PRN Reason: Shortness Of Breath Or Wheezing Cetirizine HCl 10 mg PO DAILY Discontinued Rosuvastatin Calcium 20 mg PO HS Meloxicam 15 mg PO DAILY Aspirin [Aspir 81] 81 mg PO QODHS Ubidecarenone/Vit E Acet [Co Q-10 100 mg Softgel] 1 each PO DAILY
== END 2018-10-19 13:05 | disposition home or self-care (01) ==
LOC: ER 09:38 → 2ND 12:42 → INTOOBSV 12:42 → OBSVTOIN 12:42 → 2ND 14:19
PROVIDERS: ADMIT Family Medicine; ATTEND Family Medicine

== ENCOUNTER → 2018-10-21 11:08 | Outpatient (CLI) | payer BC, SELFPAY ==
--- NOTE | 2018-10-21 11:16 | XR_ITS ---
XR chest 2V HISTORY: ITS.REASON: ABDOMINAL PAIN ORDERING PHYSICIAN: Opal Hooks PATIENT AGE: 63 years COMPARISON: 11/17/2017 FINDINGS: The cardiomediastinal silhouette and pulmonary vascularity are within normal limits. The lungs are clear without infiltrates, suspicious nodules, or pleural effusions. There is evidence of old granulomatous disease No acute bony abnormalities. IMPRESSION: No change with no acute finding
== END ==
PROVIDERS: PCP Family Medicine; Visit Provider Nurse Practitioner Family
DX: R10.9 Unspecified abdominal pain (principal)
CPT/HCPCS: 71046

== ENCOUNTER → 2018-11-04 09:34 | Outpatient (CLI) | payer BC, SELFPAY ==
[2018-11-04 09:51] LABS: Basophils % 0.3 % (0.1-2.0); Eosinophils # 0.1 K/mm3 (0.0-0.4); Eosinophils % 2.1 % (0.1-12.0); Hematocrit 46.4 % (42.0-52.0); Hemoglobin 15.6 g/dL (14.1-18.0); Lymphocytes # 0.8 K/mm3 (0.7-4.5); Lymphocytes % 18.2 % (10-50); Mean Corpuscular HGB Conc 33.6 g/dL (31.8-35.4); Mean Corpuscular Hemoglobin 31.3 pg (27.0-31.2); Mean Corpuscular Volume 93.2 fl (80-94); Mean Platelet Volume 7.1 fl (7.4-10.4); Monocytes # 0.2 K/mm3 (0.1-1.0); Monocytes % 5.5 % (1.7-9.3); Neutrophils % 73.8 % (37.0-80.0); Platelet Count 258 K/mm3 (142-424); Red Blood Count 4.97 M/mm3 (4.60-6.20); Red Cell Distribution Width 13.2 % (11.5-17.5); White Blood Count 4.1 K/mm3 (4.8-10.8)
[2018-11-04 10:31] LABS: Alanine Aminotransferase 35 U/L (12-78); Albumin Level 3.7 gm/dL (3.4-5.0); Albumin/Globulin Ratio 1.3 (1.1-1.8); Alkaline Phosphatase 119 U/L (46-116); Amylase 41 U/L (25-115); Anion Gap 14.9 mEq/L (5-15); Aspartate Amino Transferase 11 U/L (15-37); Bilirubin,Total 0.7 mg/dL (0.2-1.0); Blood Urea Nitrogen 7 mg/dL (7-18); Calcium 10.4 mg/dL (8.5-10.1); Carbon Dioxide 26 mmol/L (21.0-32.0); Chloride 103 mmol/L (98-107); Creatinine,Serum 0.81 mg/dL (0.70-1.30); Estimated Glomerular Filt Rate 97 ml/min (>60); GFR (African American) 117 ML/MIN (>60); Globulin 2.8 gm/dl (1.3-3.2); Glucose 130 mg/dL (74-106); Lipase 146 u/L (73-393); Potassium 3.9 mmoL/L (3.5-5.1); Sodium 140 mmol/L (136-145); Total Protein,Serum 6.5 gm/dL (6.4-8.2)
== END ==
PROVIDERS: Visit Provider Nurse Practitioner Acute Care
DX: R10.11 Right upper quadrant pain (principal); R94.5 Abnormal results of liver function studies
CPT/HCPCS: 36415; 80053; 82150; 83690; 85025

== ENCOUNTER → 2018-11-04 09:36 | Outpatient (POV) | payer BC, SELFPAY | PROVIDERS: Visit Provider Nurse Practitioner Acute Care | DX: Z00.00 Encounter for general adult medical examination without abnormal findings (principal) ==

== ENCOUNTER → 2018-11-13 07:43 | Outpatient (CLI) | payer BC, SELFPAY ==
--- NOTE | 2018-11-13 07:48 | US_ITS ---
US abdomen limited History:Shanika elevated liver enzymes Ordering Physician:Joanna Rose Patient Age: 63 years Comparison:None Findings: Pancreas:Unremarkable. No obvious mass or abnormal fluid collection. No ductal dilatation Liver:No focal liver lesions demonstrated. Homogeneous echogenicity. No intrahepatic biliary ductal dilatation evident Right Kidney:Unremarkable. Normal size and echogenicity. No hydronephrosis Gallbladder:Status post cholecystectomy. No ductal dilatation. Impression: Prior cholecystectomy. No ductal dilatation or other significant anomalies
== END ==
PROVIDERS: PCP Family Medicine; Visit Provider Nurse Practitioner Acute Care
DX: R10.11 Right upper quadrant pain (principal); R94.5 Abnormal results of liver function studies
CPT/HCPCS: 76705

== ENCOUNTER → 2019-01-06 08:56 | Outpatient (POV) | payer BC, SELFPAY | PROVIDERS: Visit Provider Nurse Practitioner Acute Care | DX: Z00.00 Encounter for general adult medical examination without abnormal findings (principal) ==

== ENCOUNTER → 2019-01-10 15:06 | Outpatient (CLI) | payer BC, SELFPAY ==
--- NOTE | 2019-01-10 | CI_ITS ---
Cerebrovascular Exam Indications: 780.4 Dizziness and giddiness. IMPRESSIONS 1. The bilateral vertebral arteries are patent with normal antegrade flow. 2. Study suggests less than 20% stenosis involving the right internal carotid artery and the left internal carotid artery. Carotid duplex study. Complete study and Doppler flow study including spectral analysis, color and tolbert scale imaging. Location: Vascular laboratory. Patient status: Outpatient. Tables: Arterial flow: + +--------+--------+ Location V sys V ed + +--------+--------+ Right CCA - proximal 116cm/s 22cm/s + +--------+--------+ Right CCA - distal 95.9cm/s 26.7cm/s + +--------+--------+ Right ECA 101cm/s -------- + +--------+--------+ Right ICA - proximal 61.8cm/s 20.4cm/s + +--------+--------+ Right ICA - mid 87.7cm/s 33.6cm/s + +--------+--------+ Right ICA - distal 94.9cm/s 35.8cm/s + +--------+--------+ Right vertebral 40.9cm/s -------- + +--------+--------+ Left CCA - proximal 145cm/s 33.4cm/s + +--------+--------+ Left CCA - distal 114cm/s 27.1cm/s + +--------+--------+ Left ECA 84.9cm/s -------- + +--------+--------+ Left ICA - proximal 66cm/s 20.7cm/s + +--------+--------+ Left ICA - mid 59.4cm/s 18.2cm/s + +--------+--------+ Left ICA - distal 95cm/s 30.7cm/s + +--------+--------+ Left vertebral 55.2cm/s -------- + +--------+--------+ Velocity ratios: + + + + + + Right, V sys Right, V ed Left, V sys Left, V ed + + + + + + Max ICA/dist CCA 0.99 1.34 0.83 1.13 + + + + + + (Report amended ) Electronically signed by: Johnson Fulton [id number]
== END ==
PROVIDERS: PCP Family Medicine; Visit Provider Nurse Practitioner Family
DX: R42 Dizziness and giddiness (principal)
CPT/HCPCS: 93880

== ENCOUNTER → 2019-03-27 14:05 | Outpatient (CLI) | payer BC, SELFPAY ==
[2019-03-29 20:35] LABS: PSA, Free 1.99 ng/mL; Prostate Specific Ag 6.9 ng/mL (0.0-4.0)
== END ==
PROVIDERS: Visit Provider Urology
DX: R97.20 Elevated prostate specific antigen [PSA] (principal)
CPT/HCPCS: 36415; 84153; 84154

== ENCOUNTER → 2019-10-02 13:35 | Outpatient (CLI) | payer BC, SELFPAY ==
[2019-10-03 17:19] LABS: PSA, Free 1.21 ng/mL; Prostate Specific Ag 3.9 ng/mL (0.0-4.0)
== END ==
PROVIDERS: Visit Provider Urology
DX: N40.0 Benign prostatic hyperplasia without lower urinary tract symptoms (principal)
CPT/HCPCS: 36415; 84153; 84154

== ENCOUNTER → 2020-02-10 19:32 | Outpatient (CLI) | payer BC, SELFPAY ==
[2020-02-10 20:21] LABS: Chloride 102 mmol/L (98-107); Potassium 3.7 mmoL/L (3.5-5.1); Sodium 138 mmol/L (136-145)
[2020-02-10 20:24] LABS: Anion Gap 11.7 mEq/L (5-15); Blood Urea Nitrogen 14 mg/dl (9-20); Carbon Dioxide 28 mmol/L (22.0-30.0); Estimated Glomerular Filt Rate 86 ml/min (>60); GFR (African American) 103 ML/MIN (>60); Glucose 95 mg/dl (74-100)
[2020-02-10 20:35] LABS: Calcium 12.9 mg/dl (8.4-10.2)
== END ==
PROVIDERS: PCP Family Medicine; Visit Provider Urology
DX: R31.0 Gross hematuria (principal)
CPT/HCPCS: 36415; 80048

== ENCOUNTER → 2020-02-11 08:55 | Outpatient (CLI) | payer BC, SELFPAY ==
--- NOTE | 2020-02-11 08:55 | CT_ITS ---
PROCEDURE: CT ABDOMEN PELVIS WO/W CON CLINICAL INDICATION: gross hematuria COMPARISON: ABDPELW CT abdomen pelvis w con from 10/16/2018 TECHNIQUE: IV Contrast: 75ML OPTIRAY 350 Oral Contrast none Axial images obtained with sagittal and coronal reformats. All CT scans at the facility use one or more dose reduction, viz: automated exposure control, ma/kV adjustment per patient size (including targeted exams where dose is matched to indication, i.e. head), or iterative reconstruction technique. FINDINGS: LOWER THORAX: There is some minimal calcification along the pericardium posteriorly on the left and there is coronary artery calcification noted ABDOMEN & PELVIS: The liver, spleen, adrenal glands, and pancreas have an unremarkable appearance. No renal or ureteral calculi. No renal mass.. The prostate is enlarged measuring 6.5 x 4.5 cm with some coarse calcification. This is causing indentation upon the inferior aspect of the urinary bladder. There was mild concentric thickening of the urinary bladder wall. No intestinal obstruction or free air. There is a mild amount of retained colonic feces. No evidence of appendicitis or diverticulitis. There are mild degenerative changes in the thoracic spine. IMPRESSION: 1. No renal or ureteral calculi. 2. Enlarged prostate with some indentation upon the base of the urinary bladder with mild thickening of the urinary bladder wall. Dictated by: Rl King MD 02/12/2020 10:11 Electronically signed by Rl King MD in [place] 02/12/2020 10:11
== END ==
PROVIDERS: PCP Family Medicine; Visit Provider Urology
DX: R31.0 Gross hematuria (principal)
CPT/HCPCS: 74178; Q9967

== ENCOUNTER → 2020-03-27 08:41 | Outpatient (CLI) | payer BC, SELFPAY ==
[2020-03-28 16:15] LABS: Covid-19 Nasal PCR Sendout Lex NOT DETECTED
--- NOTE | 2020-03-28 17:22 | PC.NURSE ---
Notified sales development manager of NEGATIVE COVID results. Attempted to notify patient, left message.
--- NOTE | 2020-03-28 17:25 | PC.NURSE ---
Patient called back, reported negative COVID test results, and informed patient that he was clear to have his procedure done on 03/29/2020.
== END ==
PROVIDERS: Visit Provider Urology
DX: Z03.818 Encounter for observation for suspected exposure to other biological agents ruled out (principal)
CPT/HCPCS: U0003

== ENCOUNTER 2020-03-29 07:57 | Day surgery (SDC) | payer BC, SELFPAY ==
--- NOTE | 2020-03-26 12:11 | SUR.PREOP ---
03/26/20 @ 5768--PHONE CALL MADE TO PATIENT. PATIENT UNDERSTANDS THAT LAB WORK AND COVID-19 TESTING NEEDS TO BE COMPLETED @ 0830 ON 03/27/20. PATIENT UNDERSTANDS IF LAB WORK AND COVID-19 TESTS ARE NOT COMPLETED BY 12PM ON THAT DATE, THE SURGERY SCHEDULED WILL BE CANCELLED AND RESCHEDULED FOR ANOTHER TIME.
[2020-03-29 08:11] VITALS: BP 165/90; PULSE 92; RESP 18; TEMP 36.4; O2SAT 97; BMI 24.3
[2020-03-29 09:26] VITALS: BP 123/79; PULSE 81; RESP 18; TEMP 36.9; O2SAT 93
[2020-03-29 09:38] VITALS: BP 123/79; PULSE 81; RESP 18; TEMP 36.9; O2SAT 94
--- NOTE | 2020-03-29 12:27 | P.OP_ITS ---
Date of procedure: 03/29/20 Pre-op Diagnosis:: Gross hematuria Post-op Diagnosis:: BPH Procedure performed:: Cystoscopy Surgeon:: Hong Casey MD Anesthesia: local Estimated blood loss (mL): 0 Clinical Note:: 64-year-old white male with episode of gross hematuria several weeks ago. CT scan shows only an enlarged prostate. Patient denies any interval hematuria. Operative findings:: Prostate enlargement with friability of the prostate. No evidence of bladder abnormalities. Operative note:: Patient taken to the operating room after informed consent was obtained. He was kept on the stretcher where he was prepped and draped in the standard surgical fashion and 2% lidocaine placed into the urethra and clamped. After 5 minutes the clamp was removed and the 16 Portuguese flexible cystoscope introduced into the urethral meatus. Passed to the prostatic urethra which showed trilobar hyperplasia and some friability of the prostatic mucosa. The bladder was entered and examined in a systematic fashion. There was some mild to moderate trabeculation noted but no cellules or diverticula. There is no evidence of mucosal abnormalities or bladder tumors. The ureteral orifices in their normal anatomic position with clear reflux of urine. Scope was retroflexed showing a small median lobe protruding into the bladder. Scope then removed patient tolerated the procedure well there were no complications. We discussed the findings today and he was placed on a course of finasteride which will help with the prostatic bleeding as well as a decrease the prostate size. Most recent PSA was 3.9 and we will repeat that in the near future. Condition: stable Disposition: same day Specimens:: None Complications:: None
== END 2020-03-29 09:38 | disposition home or self-care (01) ==
LOC: OUTP 07:58
PROVIDERS: PCP Family Medicine; Visit Provider Urology
PROC: (CPT 52000; principal; 2020-03-29 09:00)
DX: R31.0 Gross hematuria (principal); N40.0 Benign prostatic hyperplasia without lower urinary tract symptoms
CPT/HCPCS: 52000

== ENCOUNTER → 2020-03-29 10:33 | Outpatient (CLI) | payer BC, SELFPAY ==
[2020-03-30 17:19] LABS: PSA, Free 1.07 ng/mL; Prostate Specific Ag 4.4 ng/mL (0.0-4.0)
== END ==
PROVIDERS: Visit Provider Urology
DX: R97.20 Elevated prostate specific antigen [PSA] (principal)
CPT/HCPCS: 36415; 84153; 84154

== ENCOUNTER → 2020-10-04 14:25 | Outpatient (CLI) | payer BC, SELFPAY ==
[2020-10-04 15:36] LABS: Prostate Specific Ag, Diagnost 3.92 ng/ml (0.0-4.0)
== END ==
PROVIDERS: Visit Provider Urology
DX: N13.8 Other obstructive and reflux uropathy (principal); N40.1 Benign prostatic hyperplasia with lower urinary tract symptoms
CPT/HCPCS: 36415; 84153

== ENCOUNTER 2020-11-02 15:00 | Outpatient (RCR) | payer OTHER, SELFPAY | END 2020-11-02 15:05 | disposition home or self-care (01) | LOC: PT 15:00 | PROVIDERS: Visit Provider Orthopaedic Surgery | DX: M25.511 Pain in right shoulder (principal) | CPT/HCPCS: 97010; 97014; 97016; 97033; 97110; 97140; 97163; 97164; G0283 ==

== ENCOUNTER 2020-12-15 13:01 | Emergency (ER) | payer BC, SELFPAY ==
[2020-12-15 13:01] VITALS: BP 141/90; PULSE 82; RESP 16; TEMP 36.6; O2SAT 98; BMI 25.5
--- NOTE | 2020-12-15 13:24 | HMH.EDUTC ---
[facility] [place] Clinical Impression: Exposure to COVID-19 virus Disposition: Home, Self-Care Condition on Discharge: Good Instructions: Preventing the Spread of Coronavirus Discharge Instructions Additional Instructions: Drink plenty of fluids. Take tylenol for pain or fever. Return if you begin to have difficulty breathing. Follow up with your regular doctor. GO TO THE ER FOR ANY WORSENING SYMPTOMS Referrals: Geovanny Pace MD [Primary Care Provider] - Time of Disposition: 13:25 Medical Decision Making - Medical Records Medical records reviewed: No: I reviewed the patient's medical records. - Nikhil Inquiry Pt receiving controlled substance: No Vital Signs: 12/15/20 13:01 12/15/20 13:29 Temperature 97.8 F 97.8 F Temperature Source Oral Oral Pulse Rate 82 Pulse Rate [Right] 82 Respiratory Rate 16 16 Blood Pressure 141/90 H Blood Pressure [Right Arm] 141/90 H Blood Pressure Mean [Right Arm] 107 02 Sat by Pulse Oximetry 98 Orders (Tests/Meds): ORDERS Category Date Time Status Covid-19 Nasal PCR Sendout [facility] Stat Lab 12/15/20 13:09 [place] [facility] [place] - General Stated complaint: covid test Time Seen by Provider: 12/15/20 13:24 Description of Symptoms (Recalled from Triage Doc. by RN): pt request COVID test pt has no symptoms HEENT Symptoms (Recalled from RN notes): No Resp Symptoms (Recalled from RN notes): No Skin Symptoms (Recalled from RN notes): No MS Symptoms (Recalled from RN notes): No Functional Status (Recalled from RN notes): wnl - History of Present Illness Provider Complaint: He states that he has been exposed to covid-19 at his home around 4 days ago. He denies any symptoms so far. - Related Data Home Medications Medication Instructions Recorded Confirmed Albuterol Sulfate [Ventolin HFA 1 - 2 puffs IH Q4-6H PRN 10/16/18 11/09/20 Inhaler] Fluticasone Propionate 1 spray NOSTRIL-B DAILYP PRN 10/16/18 11/09/20 Omeprazole Magnesium [Prilosec Otc 20 mg PO DAILY PRN 10/16/18 11/09/20 20mg Tab] Cetirizine HCl 10 mg PO DAILY 10/17/18 11/09/20 Hyoscyamine Sulfate [Levsin 0.125 mg PO QID 03/26/20 11/09/20 0.125mg tablet] Previous Rx's Medication Instructions Recorded azithromycin 500 mg tablet 500 mg PO DAILY 3 Days #3 tab 11/09/20 Allergies Allergy/AdvReac Type Severity Reaction Status Date / Time No Known Allergies Allergy Verified 12/15/20 13:14 - Worker's Comp Is this a Worker's Comp case?: No [facility] History - Hepatitis A Screen Drug use history?: No High risk sexual behaviors?: No History of sexually transmitted infection?: No Currently employed?: No Childcare worker?: No Do you have indoor plumbing?: Yes Do you have electricity?: Yes Attestation statement:: This patient has been screened for Hepatitis A risk factors. I have reviewed the patient's past medical history: Yes Medical History: Reports:: Coronary Artery Disease, Gall Bladder Disease, Hiatal Hernia, Hyperlipidemia Denies:: Cancer, Diabetes Mellitus Type 1, Diabetes Mellitus Type 2, Internal Pacemaker, Lung Disease, MRSA, Seizures Laterality Cases: Bilateral: Tonsillectomy Other Surgeries: Yes: No Previous Surgery, Appendectomy, Cardiac Catheterization, Cholecystectomy, Colonoscopy. No: Pacemaker Amputation: No Fractures: No Comment: right shoulder surgery - Social History Smoking Status: Never smoker Alcohol Intake: never Alcohol Intake Frequency:: holidays/special occasions only Substance Use Type: denies use Occupational Status: employed Housing: house Household Members: family Family Hx:: Diabetes, Heart Attack ROS Obtained: Yes All systems reviewed & no additional complaints - Constitutional Constitutional: Reports system reviewed and no additional complaints, except as docu - Eyes Eyes: Reports system reviewed and no additional complaints, except as docu - ENT Ears, Nose, Mouth, and Throat: Reports system reviewed and no addition
[2020-12-15 13:29] VITALS: BP 141/90; PULSE 82; RESP 16; TEMP 36.6; O2SAT 98
[2020-12-16 10:08] LABS: Covid-19 Nasal PCR Sendout P&C Negative
== END 2020-12-15 13:31 | disposition home or self-care (01) ==
PROVIDERS: Emergency Provider Nurse Practitioner Family; PCP Emergency Medicine
DX: Z20.822 Contact with and (suspected) exposure to COVID-19 (principal); E78.5 Hyperlipidemia, unspecified; I25.10 Atherosclerotic heart disease of native coronary artery without angina pectoris; Z79.899 Other long term (current) drug therapy
CPT/HCPCS: 99202; G0463; U0004

== ENCOUNTER → 2021-04-04 15:42 | Outpatient (CLI) | payer OTHER, SELFPAY ==
[2021-04-06 14:17] LABS: PSA, Free 1.02 ng/mL; Prostate Specific Ag 4.5 ng/mL (0.0-4.0)
== END ==
PROVIDERS: Visit Provider Urology
DX: R97.20 Elevated prostate specific antigen [PSA] (principal)
CPT/HCPCS: 36415; 84153; 84154

== ENCOUNTER → 2021-10-06 15:29 | Outpatient (CLI) | payer SELFPAY ==
[2021-10-08 08:36] LABS: PSA, Free 1.14 ng/mL
== END ==
PROVIDERS: Visit Provider Urology
DX: R97.20 Elevated prostate specific antigen [PSA] (principal)
CPT/HCPCS: 36415; 84153; 84154

== ENCOUNTER → 2022-03-22 09:13 | Outpatient (CLI) | payer BC, SELFPAY ==
[2022-03-22 10:01] LABS: Basophils % 0.3 % (0.1-2.0); Eosinophils # 0.2 K/mm3 (0.0-0.4); Eosinophils % 3.4 % (0.1-12.0); Hematocrit 43.1 % (42.0-52.0); Hemoglobin 14.8 g/dL (14.1-18.0); Lymphocytes # 0.8 K/mm3 (0.7-4.5); Lymphocytes % 18.3 % (10-50); Mean Corpuscular HGB Conc 34.3 g/dL (31.8-35.4); Mean Corpuscular Hemoglobin 31.8 pg (27.0-31.2); Mean Corpuscular Volume 92.8 fl (80-94); Mean Platelet Volume 7.3 fl (7.4-10.4); Monocytes # 0.4 K/mm3 (0.1-1.0); Monocytes % 8.1 % (1.7-9.3); Neutrophils # 3.2 K/mm3 (1.8-7.8); Neutrophils % 69.9 % (37.0-80.0); Platelet Count 186 K/mm3 (142-424); Red Blood Count 4.65 M/mm3 (4.60-6.20); Red Cell Distribution Width 13.8 % (11.5-17.5); White Blood Count 4.5 K/mm3 (4.8-10.8)
[2022-03-22 10:44] LABS: Alanine Aminotransferase 30 U/L (12-78); Albumin Level 3.9 g/dl (3.5-5.0); Alkaline Phosphatase 78 U/L (38-126); Anion Gap 8.2 mEq/L (5-15); Aspartate Amino Transferase 29 U/L (17-59); Bilirubin,Direct 0.1 mg/dl (0.0-0.4); Bilirubin,Indirect 0.5 mg/dL (0.0-0.9); Bilirubin,Total 0.6 mg/dl (0.2-1.3); Bilirubin,Unconjugated 0.5 mg/dL (0.0-1.1); Blood Urea Nitrogen 12 mg/dl (9-20); Calcium 9.1 mg/dl (8.4-10.2); Carbon Dioxide 27 mmol/L (22.0-30.0); Chloride 106 mmol/L (98-107); Chol/HDL Ratio 4.9 (1-3.5); Cholesterol 222 mg/dl (140-200); Estimated Glomerular Filt Rate 114 ml/min (>60); GFR (African American) 137 ML/MIN (>60); Glucose 95 mg/dl (74-100); HDL Cholesterol 45 mg/dl (40-60); Magnesium 1.7 mg/dl (1.6-2.3); Potassium 4.2 mmoL/L (3.5-5.1); Sodium 137 mmol/L (136-145); Triglycerides 225 mg/dl (30-150); VLDL Cholesterol 45 mg/dL (0-40)
[2022-03-22 10:56] LABS: Direct LDL Cholesterol 114.53 mg/dL (100-129)
[2022-03-22 11:01] LABS: Free T4 (Free Thyroxine) 0.96 ng/dl (0.78-2.19)
== END ==
PROVIDERS: Visit Provider Physician Assistant
DX: R06.00 Dyspnea, unspecified (principal); R07.9 Chest pain, unspecified; I65.29 Occlusion and stenosis of unspecified carotid artery; Z82.49 Family history of ischemic heart disease and other diseases of the circulatory system
CPT/HCPCS: 36415; 80048; 80061; 80076; 83735; 84439; 84443; 85025

== ENCOUNTER → 2022-03-28 06:54 | Outpatient (CLI) | payer BC, SELFPAY ==
--- NOTE | 2022-03-28 06:56 | NM_ITS ---
APPROVED REPORT Exam: Nuclear Stress Test Indication: Chest pain, SOB, High cholesterol, Family history Patient Location: Outpatient Stress Tech: Mariia Choi NH Tech:Isela Perales, ARRT, RT (R)(N) Ht: 6 ft 4 in Wt: 220 lbs HR: 83 bpm BP: 125/83 mmHg BSA: 2.31 m2 BMI: 26.7 History: Chest pain, SOB, High cholesterol, Family history Procedure: Patient exercised on Estrada protocol 8:10 minutes and sec, resting heart rate 83 bpm, resting blood pressure 125/83 mmHg, with exercise maximum heart rate achived was 164 bpm which is 105 % of the maximum predicted heart rate and blood pressure was 204/90 mmHg. Test was stopped due to SOB. Patient denied any complaint of chest pain. Patient has good exercise capacity, achieved 10.1 METs of workload on treadmill, the blood pressure response to exercise was Hypertensive. Electrocardiogram Resting electrocardiogram shows sinus rhythm, with exercise there is less than 1.[address] segment depression noted from the baseline EKG. The EKG portion of the exercise Myoview is negative for ischemia. Cardiac Stress and Resting SPECT Images: Cardiac Stress and Resting SPECT images were obtained using technetium 99m Myoview 31.4 mCi stress and 10.34 mCi at rest. Gated SPECT for analysis of segmental wall motion and calculation of the ejection fraction also done. Cardiac stress and rest SPECT images show uniform myocardial activity without segmental perfusion abnormality, computer derived ejection fraction is 42% which appears to be an underestimation of the ejection fraction, visually estimated ejection fraction is 55%. With no regional wall motion abnormality. Conclusion: 1. The EKG portion of the exercise Myoview is negative for ischemia, patient has good exercise capacity achieved 10.1 METs of workload on treadmill, the blood pressure response to exercise was hypertensive, there was no exercise-induced chest discomfort. 2. No scintigraphic evidence of reversible ischemia seen, visually estimated ejection fraction is 55% with no regional wall motion abnormality, right ventricle is normal size and contractility. Computer derived ejection fraction of 42% is under estimation of the ejection fraction. 3. Likely normal exercise Myoview study except for hypertensive blood pressure response. Electronically signed by : Omid Mccray MD 03/29/2022 06:51:31
--- NOTE | 2022-03-28 06:56 | CA_ITS ---
APPROVED REPORT EXAM: Comprehensive 2D, Doppler, and color-flow Echocardiogram Mechanic Helper: Aicha Sapp, RCS, RVS Ht: 6 ft 4 in Wt: 221lbs BSA: 2.31 BP: 140/89 mmHg Indications: CP, CAD, Family HX-HD, MONREAL, HLD 2D Dimensions IVSd 1.27 cm LVEF (Visual) 50.00 % PWd 1.37 cm LA Volume 38.30 mL LVDd 5.34 cm LA Volume Index 16.60 mL/m2 (M/F) 16-34 LVDs 3.49 cm Aortic Root 3.73 cm Left Atrium 3.58 cm LVOT 2.28 cm (M/F) 1.5-2.5 M-Mode Dimensions LA Diam 3.80 cm (1.9-4.0) Ao Diam 3.74 cm (2.0-3.7) EPSs 1.32 cm TAPSE 1.84 (<1.7) LV Diastology E Decel Time 113.00 (160-240 msec) E/A Ratio 0.80 MED E' 6.50 (< 7 cm/sec) MED A' 10.50 cm/s E'/MED E' Ratio 6.55 (>14) LAT E' 7.10 (<10 cm/sec) LAT A' 6.80 cm/s E/LAT E' Ratio 6.00 (>14) Aortic Valve LVOT Max 82.00 (70-110 cm/s) LVOT VTI 18.20 cm AoV Peak Luis Alberto. 106.00 (50-130 cm/s) AO Peak GR. 4.50 mmHg AO Mean GR. 2.80 (<5 mmHg) AO VTI 22.58 (18-25 cm) IDRIS (VTI) 3.29 (2.5-4.5 cm2) Mitral Valve MV A Velocity 53.00 (40-130 cm/s) E/A Ratio 0.80 MV Decel. Time 113.00 (160-240 ms) MV Mean Gr. 0.90 (<2mmHg) Pulmonary Valve PV Peak Velocity 118.00 (50-150 cm/s) Tricuspid Valve TR P. Velocity 154.00 cm/s Left Ventricle Left atrium is mildly enlarged, left ventricle is normal size, mild concentric left ventricular hypertrophy, estimated ejection fraction approximately 50% with no regional wall motion abnormality, grade 1 diastolic dysfunction seen without tissue Doppler evidence of raise left atrial pressure. Right Ventricle Right atrium and right ventricle are mildly enlarged with normal contractility. Aortic Valve Aortic valve is minimally thickened and calcified without aortic stenosis or aortic insufficiency. Mitral Valve Mitral valve grossly normal, there is mild mitral regurgitation. Tricuspid Valve Tricuspid grossly normal, there is mild tricuspid regurgitation, tricuspid regurgitation jet velocity is inadequate for calculation of the right ventricular systolic pressure. Pulmonic Valve Pulmonic valve is poorly visualized. Great Vessels Aortic root is normal size. Inferior vena cava is poorly visualized. Pericardium No significant pericardial effusion noted. Conclusion 1. Biatrial enlargement, normal left ventricular size, mild concentric left ventricular hypertrophy, estimated ejection fraction 50% with no regional wall motion abnormality, grade 1 diastolic dysfunction seen without tissue Doppler evidence of raise left atrial pressure. 2. Mildly enlarged right ventricle with normal contractility. 3. Mild mitral and tricuspid regurgitation. 4. No significant pericardial effusion. 5. Inferior vena cava is poorly visualized. Electronically signed by : Omid Mccray MD 03/28/2022 20:45:34
--- NOTE | 2022-03-28 06:56 | CA_ITS ---
APPROVED REPORT Exam: Exercise Treadmill Technologist: Mariia Colon, Ht: 6 ft 4 in Wt: 221 lbs BSA: 2.31 m2 HR: 68 bpm BP: 116/79 mmHg Indications: CP Medical History Medications: Aspirin,,,,, SilDENAFIL,,,,, Stress Test Details Test: Estrada HR Resting HR: 83 bpm Max Heart Rate (APMHR): 156.401273 bpm Max HR Achieved: 164 bpm Target HR (85% APMHR): 132.456840 bpm % of APMHR: 105.13 Recovery HR: 88 bpm BP Resting BP: 125/83 mmHg Max BP: 204/90 mmHg Recovery BP: 133.0/81.0 mmHg ECG Resting ECG: NSR, ST-T abns inferiorly, PVCs & Ventricular couplet Clinical Exercise duration: 08:10 min Highest Stage Achieved: III Exercise capacity: 10.1 METs Stress ECG Conclusion Exercised 8:10 on Estrada Protocol, going into stage III Max HR: 164 % of PM: 105% Max BP: 204/90 METs: 10.1 Test stopped due to: SOA, fatigue Symptoms: Mild left chest pressure & SOA. Arrhythmias/Ectopy: Occ to frequent isolated PVCs, occ vent. couplet in recovery. Occ PAC. ST-T Changes: 0.75-[address] depression laterally. Exaggeration of baseline abns in inferior leads. Conclusion: Equivocal EKG, changes for ischemia. Occ to frequent vent. ectopy. Myoview images reported separately. Test Summary RECOVERY 07:22 0.0 0.0 87 . 133/ 81 . . REST . . . . . . . Standing REST 05:55 0.0 0.0 83 . 125/ 83 . . Stage 1 01:00 10.0 1.7 101 . . . . Stage 1 02:00 10.0 1.7 113 . . . . Stage 1 03:00 10.0 1.7 114 . 164/ 86 . . Stage 2 01:00 12.0 2.5 123 . . . . Stage 2 02:00 12.0 2.5 133 . . . . Stage 2 03:00 12.0 2.5 140 . 190/ 90 . . Stage 3 01:00 14.0 3.4 152 . . . . Stage 3 02:00 14.0 3.4 161 . . . . Stage 3 02:10 14.0 3.4 163 . . . Stop exercise at 08:10 RECOVERY 01:00 0.0 0.0 133 . . . . RECOVERY 02:00 0.0 0.0 115 . 204/ 90 . . RECOVERY 03:00 0.0 0.0 99 . 133/ 88 . . RECOVERY 04:00 0.0 0.0 97 . 128/ 89 . . RECOVERY 05:00 0.0 0.0 96 . 134/ 87 . . RECOVERY 06:00 0.0 0.0 90 . 134/ 87 . . RECOVERY 07:00 0.0 0.0 89 . 133/ 81 . . RECOVERY 07:22 0.0 0.0 87 . 133/ 81 . . Electronically signed by : Omid Mccray MD 03/29/2022 06:47:38
--- NOTE | 2022-03-28 08:50 | HMH.ITSHM ---
Current Home Medications as stated by this patient Hong Palacios JR or factory representative. []SILDENAFIL ATORVASTATIN ASA
== END ==
PROVIDERS: PCP Family Medicine; Visit Provider Physician Assistant
DX: R06.00 Dyspnea, unspecified (principal); R07.9 Chest pain, unspecified; I65.29 Occlusion and stenosis of unspecified carotid artery; Z82.49 Family history of ischemic heart disease and other diseases of the circulatory system
CPT/HCPCS: 78452; 93017; 93306; A9502

== ENCOUNTER → 2022-07-19 12:36 | Outpatient (CLI) | payer MEDICARE, OTHER, SELFPAY ==
--- NOTE | 2022-07-19 12:39 | XR_ITS ---
FINAL REPORT CLINICAL HISTORY: plantar fasciitis FINDINGS: Left foot Two views were obtained. 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 No significant plantar calcaneal spur is identified. There is no acute fracture or dislocation. The joint spaces appear normal. No soft tissue abnormality is identified. IMPRESSION: No acute process. Reviewed, Interpreted and Dictated by Beny Calderon MD Transcribed by Opal Ellis Authenticated and [facility]
== END ==
PROVIDERS: PCP Family Medicine; Visit Provider Family Medicine
DX: M79.672 Pain in left foot (principal)
CPT/HCPCS: 73620

== ENCOUNTER → 2022-10-11 09:55 | Outpatient (CLI) | payer MEDICARE, OTHER, SELFPAY ==
[2022-10-11 10:10] LABS: MANUAL DIFFERENTIAL MANUAL DIFFERENTIAL (MANUAL DIFF)
[2022-10-11 10:38] LABS: Basophils % 0.6 % (0.1-2.0); Eosinophils # 0.1 K/mm3 (0.0-0.4); Eosinophils % 2.3 % (0.1-12.0); Hematocrit 45.6 % (42.0-52.0); Hemoglobin 15.2 g/dL (14.1-18.0); Lymphocytes # 0.8 K/mm3 (0.7-4.5); Lymphocytes % 15.6 % (10-50); Mean Corpuscular HGB Conc 33.4 g/dL (31.8-35.4); Mean Corpuscular Hemoglobin 32.4 pg (27.0-31.2); Mean Corpuscular Volume 97.2 fl (80-94); Mean Platelet Volume 8.3 fl (7.4-10.4); Monocytes # 0.3 K/mm3 (0.1-1.0); Monocytes % 6.7 % (1.7-9.3); Neutrophils # 3.7 K/mm3 (1.8-7.8); Neutrophils % 74.9 % (37.0-80.0); Platelet Count 215 K/mm3 (142-424); Red Blood Count 4.69 M/mm3 (4.60-6.20); Red Cell Distribution Width 14.6 % (11.5-17.5); White Blood Count 4.9 K/mm3 (4.8-10.8)
[2022-10-11 11:10] LABS: Chloride 102 mmol/L (98-107); Potassium 4.2 mmoL/L (3.5-5.1); Sodium 142 mmol/L (136-145)
[2022-10-11 11:12] LABS: Alanine Aminotransferase 27 U/L (12-78); Alkaline Phosphatase 76 U/L (38-126); Anion Gap 13.2 mEq/L (5-15); Aspartate Amino Transferase 27 U/L (17-59); Bilirubin,Direct 0.1 mg/dl (0.0-0.4); Bilirubin,Indirect 0.5 mg/dL (0.0-0.9); Bilirubin,Total 0.6 mg/dl (0.2-1.3); Bilirubin,Unconjugated 0.5 mg/dL (0.0-1.1); Blood Urea Nitrogen 13 mg/dl (9-20); Carbon Dioxide 31 mmol/L (22.0-30.0); Estimated Glomerular Filt Rate 75 ml/min (>60); GFR (African American) 91 ML/MIN (>60)
[2022-10-11 11:13] LABS: Albumin Level 4.1 g/dl (3.5-5.0); Calcium 9.7 mg/dl (8.4-10.2); Chol/HDL Ratio 5.8 (1-3.5); Cholesterol 230 mg/dl (140-200); Glucose 100 mg/dl (74-100); HDL Cholesterol 40 mg/dl (40-60); Magnesium 1.8 mg/dl (1.6-2.3); Total Protein,Serum 6.1 g/dl (6.3-8.2); Triglycerides 204 mg/dl (30-150); VLDL Cholesterol 41 mg/dL (0-40)
[2022-10-11 11:24] LABS: Direct LDL Cholesterol 131.96 mg/dL (100-129)
[2022-10-11 11:30] LABS: Free Thyroxine Index 1.9 ug/dL (5.93-13.13); T4 (Thyroxine) 5.4 ug/dl (5.53-11.0); Triiodothryronine (T3) Uptake 35 % (23.5-40.5)
[2022-10-11 11:44] LABS: Thyroid Stimulating Hormone 1.28 uIU/mL (0.465-4.68)
[2022-10-11 16:05] LABS: Lymphocytes % 21 % (10-50); Monocytes % 2 % (2-9); Neutrophils % 77 % (42-76); RBC Morphology Normal; Total Cells Counted 100
[2022-10-11 16:06] LABS: Platelet Estimate Normal
== END ==
PROVIDERS: PCP Family Medicine; Visit Provider Physician Assistant
DX: E11.9 Type 2 diabetes mellitus without complications (principal); E78.5 Hyperlipidemia, unspecified; I25.119 Atherosclerotic heart disease of native coronary artery with unspecified angina pectoris; I65.29 Occlusion and stenosis of unspecified carotid artery; R00.0 Tachycardia, unspecified; R06.09 Other forms of dyspnea; I11.9 Hypertensive heart disease without heart failure
CPT/HCPCS: 36415; 80048; 80061; 80076; 83735; 84436; 84443; 84479; 85007; 85014; 85018; 85048; 85049

== ENCOUNTER 2023-01-11 10:00 | Outpatient (RCR) | payer MEDICARE, OTHER, SELFPAY ==
--- NOTE | 2022-12-22 11:12 | HMH.RHREAS ---
Rehab Reassessment Rehab OP Re-assessment Start: 12/22/22 09:04 Freq: Status: Active Protocol: Document 12/22/22 09:04 DWIGHT (Rec: 12/22/22 11:11 DWIGHT [id number]) E-signed By Brian Garcia, PT Rehab Re-assessment Subjective Subjective Pt reports 0-4/10 neck pain on VAS, and feels 85% better overall since I eval Objective Objective Notes CROM: FLX 0-60, EXT 0-50, HAWA. SB 0-50, HAWA ROT 0-55 MMT: HAWA. DELTOID MM 4--4/5, HAWA BICEP 4-4+/5, [place]WA TRICEP 4 -4+/5, HAWA WRIST FLX 5/5, HAWA WRIST EXT 4+-5/5 TTP: HAWA. UT MM 1-2/4, HAWA. CERVICAL PARASPINALS /4 Assessment Progress Assessment Progressing as Expected Assessment Notes SIGNIFICANT IMPROVEMENTS IN CROM, STRENGTH, AND TTP Patient goals met STG'S 07/03 LTG'S 03/03 Goals Not Met LTG'S 03/03 Plan Plan Pt to continue w/skilled P.T. to make further improvements in CROM, strength, and TTP to allow for optimal function Frequency of Therapy 1-2x/wk Duration of therapy 3-4wks Time and Billing Re-Eval Time 12 Re-Eval Billing Units 1 PHYSICIAN CERTIFICATION: I certify the specified therapy services for Hong Palacios are required, authorized, and reviewed every 30 days.
== END 2023-01-11 10:05 | disposition home or self-care (01) ==
LOC: PT 10:00
PROVIDERS: PCP Family Medicine; Visit Provider Family Medicine
DX: M54.2 Cervicalgia (principal)
CPT/HCPCS: 97010; 97012; 97014; 97035; 97110; 97140; 97163; 97164; G0283

== ENCOUNTER 2023-01-25 11:00 | Outpatient (RCR) | payer MEDICARE, OTHER, SELFPAY | END 2023-01-25 11:05 | disposition home or self-care (01) | LOC: OT 11:00 | PROVIDERS: PCP Family Medicine; Visit Provider Orthopaedic Surgery | DX: M25.511 Pain in right shoulder (principal); S46.811A Strain of other muscles, fascia and tendons at shoulder and upper arm level, right arm, initial encounter | CPT/HCPCS: 97010; 97014; 97035; 97110; 97140; 97164; 97166; 97530; G0283 ==

== ENCOUNTER → 2023-03-01 13:30 | Outpatient (CLI) | payer MEDICARE, OTHER, SELFPAY ==
[2023-03-01 14:13] LABS: Basophils # 0.1 K/mm3 (0-0.2); Basophils % 0.9 % (0.1-2.0); Eosinophils # 0.2 K/mm3 (0.0-0.4); Eosinophils % 2.9 % (0.1-12.0); Hematocrit 47.1 % (42.0-52.0); Hemoglobin 15.4 g/dL (14.1-18.0); Lymphocytes # 0.9 K/mm3 (0.7-4.5); Lymphocytes % 18.1 % (10-50); Mean Corpuscular HGB Conc 32.8 g/dL (31.8-35.4); Mean Corpuscular Hemoglobin 30.8 pg (27.0-31.2); Mean Corpuscular Volume 93.9 fl (80-94); Mean Platelet Volume 7.3 fl (7.4-10.4); Monocytes # 0.4 K/mm3 (0.1-1.0); Monocytes % 7.3 % (1.7-9.3); Neutrophils # 3.5 K/mm3 (1.8-7.8); Neutrophils % 70.8 % (37.0-80.0); Platelet Count 184 K/mm3 (142-424); Red Blood Count 5.02 M/mm3 (4.60-6.20)
[2023-03-01 14:51] LABS: Alanine Aminotransferase 26 U/L (12-78); Albumin Level 4.4 g/dl (3.5-5.0); Alkaline Phosphatase 84 U/L (38-126); Anion Gap 8.3 mEq/L (5-15); Aspartate Amino Transferase 25 U/L (17-59); Bilirubin,Indirect 0.7 mg/dL (0.0-0.9); Bilirubin,Total 0.7 mg/dl (0.2-1.3); Bilirubin,Unconjugated 0.8 mg/dL (0.0-1.1); Blood Urea Nitrogen 12 mg/dl (9-20); Calcium 9.3 mg/dl (8.4-10.2); Carbon Dioxide 32 mmol/L (22.0-30.0); Chloride 101 mmol/L (98-107); Chol/HDL Ratio 5.8 (1-3.5); Cholesterol 259 mg/dl (140-200); Estimated Glomerular Filt Rate 85 ml/min (>60); GFR (African American) 102 ML/MIN (>60); Glucose 90 mg/dl (74-100); HDL Cholesterol 45 mg/dl (40-60); Magnesium 2.2 mg/dl (1.6-2.3); Potassium 4.3 mmoL/L (3.5-5.1); Sodium 137 mmol/L (136-145); Total Protein,Serum 6.4 g/dl (6.3-8.2); Triglycerides 318 mg/dl (30-150); VLDL Cholesterol 64 mg/dL (0-40)
[2023-03-01 15:02] LABS: Direct LDL Cholesterol 155.72 mg/dL (100-129)
[2023-03-01 15:07] LABS: Free T4 (Free Thyroxine) 0.91 ng/dl (0.78-2.19)
[2023-03-01 15:21] LABS: Thyroid Stimulating Hormone 1.55 uIU/mL (0.465-4.68)
== END ==
PROVIDERS: PCP Family Medicine; Visit Provider Nurse Practitioner
DX: E78.5 Hyperlipidemia, unspecified (principal); I25.119 Atherosclerotic heart disease of native coronary artery with unspecified angina pectoris; I65.29 Occlusion and stenosis of unspecified carotid artery; R00.0 Tachycardia, unspecified; R06.09 Other forms of dyspnea
CPT/HCPCS: 36415; 80048; 80061; 80076; 83735; 84439; 84443; 85025

== ENCOUNTER → 2023-03-02 11:46 | Outpatient (CLI) | payer MEDICARE, OTHER, SELFPAY | PROVIDERS: PCP Family Medicine; Visit Provider Nurse Practitioner | DX: E78.5 Hyperlipidemia, unspecified (principal); I25.119 Atherosclerotic heart disease of native coronary artery with unspecified angina pectoris; R06.09 Other forms of dyspnea; I65.23 Occlusion and stenosis of bilateral carotid arteries | CPT/HCPCS: 78452; 93017; A9502; J2785 ==

== ENCOUNTER → 2023-03-09 09:52 | Outpatient (CLI) | payer MEDICARE, OTHER, SELFPAY | PROVIDERS: PCP Family Medicine; Visit Provider Internal Medicine Pulmonary Disease | DX: R06.09 Other forms of dyspnea (principal) | CPT/HCPCS: 94060; 94618; 94726; 94729 ==

== ENCOUNTER → 2023-03-29 16:34 | Outpatient (CLI) | payer MEDICARE, OTHER, SELFPAY ==
[2023-03-29 17:14] LABS: Basophils % 0.4 % (0.1-2.0); Eosinophils # 0.2 K/mm3 (0.0-0.4); Eosinophils % 3.8 % (0.1-12.0); Hematocrit 43.3 % (42.0-52.0); Hemoglobin 14.4 g/dL (14.1-18.0); Lymphocytes # 0.9 K/mm3 (0.7-4.5); Lymphocytes % 15.9 % (10-50); Mean Corpuscular HGB Conc 33.3 g/dL (31.8-35.4); Mean Corpuscular Hemoglobin 31.1 pg (27.0-31.2); Mean Corpuscular Volume 93.4 fl (80-94); Monocytes # 0.4 K/mm3 (0.1-1.0); Monocytes % 7.8 % (1.7-9.3); Neutrophils # 3.9 K/mm3 (1.8-7.8); Neutrophils % 72.1 % (37.0-80.0); Platelet Count 203 K/mm3 (142-424); Red Blood Count 4.64 M/mm3 (4.60-6.20); Red Cell Distribution Width 13.9 % (11.5-17.5); White Blood Count 5.4 K/mm3 (4.8-10.8)
[2023-03-29 17:33] LABS: Chloride 97 mmol/L (98-107); Potassium 4.1 mmoL/L (3.5-5.1); Sodium 137 mmol/L (136-145)
[2023-03-29 17:36] LABS: Alanine Aminotransferase 29 U/L (12-78); Albumin Level 3.9 g/dl (3.5-5.0); Albumin/Globulin Ratio 1.9 (1.1-1.8); Alkaline Phosphatase 108 U/L (38-126); Anion Gap 14.1 mEq/L (5-15); Aspartate Amino Transferase 28 U/L (17-59); Bilirubin,Total 0.5 mg/dl (0.2-1.3); Blood Urea Nitrogen 14 mg/dl (9-20); Carbon Dioxide 30 mmol/L (22.0-30.0); Estimated Glomerular Filt Rate 85 ml/min (>60); GFR (African American) 102 ML/MIN (>60); Globulin 2.1 g/dL (1.3-3.2); Uric Acid 5.1 mg/dl (3.5-8.5)
[2023-03-29 17:37] LABS: Calcium 8.8 mg/dl (8.4-10.2); Glucose 104 mg/dl (74-100)
[2023-03-29 17:42] LABS: C-Reactive Protein 5.3 mg/L (0-4)
[2023-03-29 17:54] LABS: Erythrocyte Sedimentation Rate 15 mm/hr (0-20)
[2023-03-31 13:33] LABS: Anti-Cyclic Citrullinated Pept 6 units (0-19); RA Latex Turbid. <10.0 IU/mL (<14.0)
[2023-03-31 23:14] LABS: QuantiFERON-TB Gold Plus Negative (Negative)
[2023-04-02 09:10] LABS: Cytoplasmic (C-ANCA) <1:20 titer (Neg:<1:20); Perinuclear (P-ANCA) <1:20 titer (Neg:<1:20)
[2023-04-02 15:05] LABS: Anti-Centromere B Antibodies <0.2 AI (0.0-0.9); Anti-DNA (DS) Ab Qn 1 IU/mL (0-9); Anti-Jo-1 <0.2 AI (0.0-0.9); Antiribosomal P Antibodies <0.2 AI (0.0-0.9); Antiscleroderma-70 Antibodies <0.2 AI (0.0-0.9); Sjogren's Anti-SS-A <0.2 AI (0.0-0.9); Sjogren's Anti-SS-B <0.2 AI (0.0-0.9); Smith/RNP Antibodies <0.2 AI (0.0-0.9)
[2023-04-02 15:10] LABS: Antinuclear Antibodies, IFA Negative (.)
[2023-04-14 19:46] LABS: Aspergillus fumigatus IgG Negative
[2023-04-14 19:47] LABS: Pigeon Serum Abs Negative
== END ==
PROVIDERS: PCP Family Medicine; Visit Provider Internal Medicine Pulmonary Disease
DX: J84.9 Interstitial pulmonary disease, unspecified (principal); R06.09 Other forms of dyspnea; J45.909 Unspecified asthma, uncomplicated; J84.10 Pulmonary fibrosis, unspecified
CPT/HCPCS: 36415; 80053; 83516; 84550; 85025; 85651; 86038; 86140; 86200; 86225; 86235; 86256; 86331; 86431; 86480; 86602; 86606; 86609

== ENCOUNTER 2023-04-06 08:22 | Day surgery (SDC) | payer MEDICARE, OTHER, SELFPAY ==
[2023-04-06] VITALS (13 sets, daily range): BP systolic 94–140; BP diastolic 62–90; PULSE 59–78; RESP 16–20; TEMP 36.9; O2SAT 91–99; BMI 26.9
--- NOTE | 2023-04-06 07:06 | IR_ITS ---
APPROVED REPORT Patient Location: Outpatient Senior Operator: ELMIRA Baez RT (R) PROCEDURES Selective coronary angiogram Drug-eluting stent deployment to the proximal and mid LAD INDICATION Coronary artery disease, Angina pectoris, Abnormal Myoview Informed consent was obtained prior to the procedure. COMPLICATIONS None Estimated Blood Loss: Less than 10 ML TECHNIQUE One percent lidocaine used to anesthetize the right anterior aspect of the wrist. The right radial artery was accessed via the Seldinger technique. A 6 Lao sheath was placed in the right radial artery. 150 mg magnesium sulfate, 800 mcg of nitroglycerin, 1mg Lidocaine and 5000 U Heparin were given through the arterial sheath. The papa catheter was also used to perform selective coronary angiography. At the end of the diagnostic angiogram therapeutic heparin was administered giving a therapeutic ACT and the guide catheter was placed in left main artery followed by Choice PT extra-support wire being placed on the LAD. A 4 mm x 18 mm resolute frontier stent was deployed at 14 nicole reducing the stenosis. A 4 mm x 8 mm noncompliant balloon was then deployed at the mid segment deployed at 20 nicole pulled back to the proximal segment and then flared at 20 nicole. Excellent angiographic results were obtained with TERRI-3 flow being present before and after the procedure at the end of the procedure the apparatus was removed the sheath was removed good hemostasis was achieved using TR banding patient was transferred to the postop putting in stable condition ANGIOGRAPHIC RESULTS The left main artery Normal The left anterior descending artery Has proximal 30% stenosis with a large calcified eccentric 70% stenosis immediately adjacent to a large first diagonal artery. The LAD is large and wraps the apex and supplies the inferior wall The circumflex artery Is nondominant gives rise to a large ramus intermedius with mild 10% stenosis while the circumflex artery itself has a proximal 10 to 20% eccentric stenosis The right coronary artery Is a dominant vessel and has proximal 10% stenosis with a distal 20 to 30% stenosis distal to the RV marginal branch. A large posterior lateral branch has 10 to 20% mid vessel stenoses while the posterior descending artery itself is small with diffuse 10% stenosis The MIRELES ventriculogram reveals Not performed The left ventricular end-diastolic pressure Not measured IMPRESSION Severe proximal to mid LAD disease and a large LAD which wraps the apex and supplies a portion of the inferior wall Successful stenting the proximal to mid LAD severe disease reduced to less than 10% with 1 drug-eluting stent Persistent mild diffuse coronary disease as described above PLAN 1. Dual antiplatelet therapy 2. LDL less than 55 to be achieved with high intensity statin 3. Avoidance of tobacco products 4. Risk factor modification 5. Cardiac rehabilitation Electronically signed by : Fred Toscano MD 04/06/2023 10:42:11
[2023-04-06 09:00] LABS: Basophils % 0.4 % (0.1-2.0); Eosinophils # 0.2 K/mm3 (0.0-0.4); Eosinophils % 3.3 % (0.1-12.0); Hematocrit 44.7 % (42.0-52.0); Hemoglobin 15.2 g/dL (14.1-18.0); Lymphocytes % 17.1 % (10-50); Mean Corpuscular Hemoglobin 31.6 pg (27.0-31.2); Mean Corpuscular Volume 93.1 fl (80-94); Mean Platelet Volume 7.9 fl (7.4-10.4); Monocytes # 0.4 K/mm3 (0.1-1.0); Monocytes % 7.9 % (1.7-9.3); Neutrophils % 71.3 % (37.0-80.0); Platelet Count 211 K/mm3 (142-424); Red Blood Count 4.81 M/mm3 (4.60-6.20); Red Cell Distribution Width 14.1 % (11.5-17.5); White Blood Count 5.6 K/mm3 (4.8-10.8)
[2023-04-06 09:08] LABS: Chloride 97 mmol/L (98-107); Potassium 3.9 mmoL/L (3.5-5.1); Sodium 139 mmol/L (136-145)
[2023-04-06 09:11] LABS: Anion Gap 14.9 mEq/L (5-15); Blood Urea Nitrogen 10 mg/dl (9-20); Calcium 8.8 mg/dl (8.4-10.2); Carbon Dioxide 31 mmol/L (22.0-30.0); Creatinine Clearance Estimated 104 mL/min (50-200); Estimated Glomerular Filt Rate 85 ml/min (>60); GFR (African American) 102 ML/MIN (>60); Glucose 91 mg/dl (74-100)
--- NOTE | 2023-04-06 14:22 | P.CONPHA_ITS ---
PHA Cd Manufacturing Supervisor Discharge Med Trust Operations Assistant: Hong Palacios JR has received discharge medication counseling on the following medications: ASPIRIN BRILINTA (NEW) ATORVASTATIN BISOPROLOL ACEI/ARB NOT INDICATED AT THIS TIME. BRILINTA PROVIDED BY CLINIC PHARMACY. PATIENT VERBALIZED UNDERSTANDING AND HAD NO QUESTIONS AT THIS TIME. -MIKO VILLEGAS, PHARMD
[2023-04-06 14:28] LABS: CATHL Activated Clotting Time 239 SEC (74-125)
== END 2023-04-06 14:21 | disposition home or self-care (01) ==
PROVIDERS: PCP Family Medicine; Visit Provider Internal Medicine
DX: E78.5 Hyperlipidemia, unspecified (principal); I25.118 Atherosclerotic heart disease of native coronary artery with other forms of angina pectoris; I65.23 Occlusion and stenosis of bilateral carotid arteries; K21.9 Gastro-esophageal reflux disease without esophagitis; R06.09 Other forms of dyspnea; R94.31 Abnormal electrocardiogram [ECG] [EKG]; R94.39 Abnormal result of other cardiovascular function study; J84.10 Pulmonary fibrosis, unspecified
CPT/HCPCS: 80048; 85025; 85347; 92928; 93454; 99152; C1725; C1769; C1876; C9600; J1644; Q9967

== ENCOUNTER → 2023-04-12 12:31 | Outpatient (CLI) | payer MEDICARE, OTHER, SELFPAY ==
--- NOTE | 2023-04-12 12:41 | CT_ITS ---
FINAL REPORT TECHNIQUE: Axial CT images were performed from the lung apices through the upper abdomen. Supine inspiration and expiration and prone inspiration high-resolution CT images were obtained. Coronal reformats were submitted. This study was performed with techniques to keep radiation doses as low as reasonably achievable (ALARA). Individualized dose reduction techniques using automated exposure control or adjustment of mA and/or kV according to the patient's size were employed. CLINICAL HISTORY: soa ct chest w/o high resolution x 3 FINDINGS: There is no axillary adenopathy. There is no hilar or mediastinal mass or adenopathy. Note is made pericardial calcifications which may represent sequela of pericarditis. There is no pleural effusion. A calcified granuloma is seen in the left upper lobe. There is no evidence of bronchiectasis or emphysema. No evidence of interstitial fibrosis is seen. There is no evidence of air trapping. Limited images of the upper abdomen demonstrate surgical clips in the right upper quadrant consistent with cholecystectomy IMPRESSION: No evidence of interstitial fibrosis. Reviewed, Interpreted and Dictated by Alec Caldwell III, MD Transcribed by Luiza Bailey Authenticated and [facility]
[2023-04-12 15:27] LABS: Alanine Aminotransferase 44 U/L (12-78); Albumin Level 3.9 g/dl (3.5-5.0); Alkaline Phosphatase 116 U/L (38-126); Aspartate Amino Transferase 38 U/L (17-59); Chol/HDL Ratio 3.1 (1-3.5); Cholesterol 131 mg/dl (140-200); HDL Cholesterol 42 mg/dl (40-60); Total Protein,Serum 6.1 g/dl (6.3-8.2); Triglycerides 130 mg/dl (30-150); VLDL Cholesterol 26 mg/dL (0-40)
[2023-04-12 15:39] LABS: Direct LDL Cholesterol 73.35 mg/dL (100-129)
== END ==
PROVIDERS: PCP Physician Assistant; Visit Provider Internal Medicine Pulmonary Disease
DX: E78.5 Hyperlipidemia, unspecified (principal); I25.119 Atherosclerotic heart disease of native coronary artery with unspecified angina pectoris; I65.29 Occlusion and stenosis of unspecified carotid artery; K21.9 Gastro-esophageal reflux disease without esophagitis; R06.09 Other forms of dyspnea; I11.9 Hypertensive heart disease without heart failure; J84.9 Interstitial pulmonary disease, unspecified
CPT/HCPCS: 36415; 71250; 80061; 80076

== ENCOUNTER → 2023-05-18 14:17 | Outpatient (CLI) | payer MEDICARE, OTHER, SELFPAY ==
[2023-05-18 15:18] LABS: Chloride 103 mmol/L (98-107); Sodium 138 mmol/L (136-145)
[2023-05-18 15:20] LABS: Blood Urea Nitrogen 14 mg/dl (9-20); Estimated Glomerular Filt Rate 85 ml/min (>60); GFR (African American) 102 ML/MIN (>60); Potassium 4.2 mmoL/L (3.5-5.1)
[2023-05-18 15:21] LABS: Anion Gap 13.2 mEq/L (5-15); Calcium 8.8 mg/dl (8.4-10.2); Carbon Dioxide 26 mmol/L (22.0-30.0); Glucose 82 mg/dl (74-100)
== END ==
PROVIDERS: PCP Family Medicine; Visit Provider Physician Assistant
DX: R06.09 Other forms of dyspnea; I25.119 Atherosclerotic heart disease of native coronary artery with unspecified angina pectoris; E78.5 Hyperlipidemia, unspecified; I65.29 Occlusion and stenosis of unspecified carotid artery; R94.31 Abnormal electrocardiogram [ECG] [EKG]; R94.39 Abnormal result of other cardiovascular function study
CPT/HCPCS: 36415; 80048

== ENCOUNTER 2023-05-22 09:51 | Outpatient (RCR) | payer MEDICARE, OTHER, SELFPAY | END 2023-07-06 15:00 | disposition home or self-care (01) | LOC: PT 09:51 | PROVIDERS: Visit Provider Internal Medicine | DX: I25.10 Atherosclerotic heart disease of native coronary artery without angina pectoris (principal); Z95.5 Presence of coronary angioplasty implant and graft | CPT/HCPCS: 93798 ==

== ENCOUNTER → 2023-05-31 13:33 | Outpatient (CLI) | payer MEDICARE, OTHER, SELFPAY | LOC: RT 13:34 | PROVIDERS: PCP Family Medicine; Visit Provider Nurse Practitioner Family | DX: E78.5 Hyperlipidemia, unspecified (principal); I25.119 Atherosclerotic heart disease of native coronary artery with unspecified angina pectoris; I65.29 Occlusion and stenosis of unspecified carotid artery; K21.9 Gastro-esophageal reflux disease without esophagitis; R06.09 Other forms of dyspnea; R94.31 Abnormal electrocardiogram [ECG] [EKG] | CPT/HCPCS: 93308 ==

== ENCOUNTER → 2023-07-16 13:07 | Outpatient (CLI) | payer MEDICARE, OTHER, SELFPAY ==
--- NOTE | 2023-07-16 13:51 | PC.NURSE ---
PFT and 6 Minute Walk Test completed without incident. Albuterol 0.083% given via HHN, per protocol, Pt tolerated tx well.
== END ==
PROVIDERS: PCP Family Medicine; Visit Provider Internal Medicine Pulmonary Disease
DX: R06.09 Other forms of dyspnea (principal)
CPT/HCPCS: 94060; 94618; 94726; 94729

== ENCOUNTER → 2023-11-01 09:00 | Outpatient (CLI) | payer MEDICARE, OTHER, SELFPAY ==
--- NOTE | 2023-11-01 09:05 | XR_ITS ---
FINAL REPORT CLINICAL HISTORY: right heel pain COMPARISON: None FINDINGS: Two views of the right foot were obtained. There is no acute fracture or dislocation. There is mild degenerative change. There is a very small plantar calcaneal spur. There is no soft tissue abnormality. IMPRESSION: Mild degenerative change without acute fracture Reviewed, Interpreted and Dictated by Alec Caldwell III, MD Transcribed by Lyubov Stock Authenticated and [facility]
== END ==
PROVIDERS: PCP Nurse Practitioner; Visit Provider Nurse Practitioner
DX: M79.671 Pain in right foot (principal)
CPT/HCPCS: 73620

== ENCOUNTER 2024-01-17 11:20 | Outpatient (CLI) | payer MEDICARE, OTHER, SELFPAY ==
--- NOTE | 2024-01-17 11:23 | NM_ITS ---
APPROVED REPORT Exam: Nuclear Stress Test Indication: chest pain..soa Patient Location: Outpatient Stress Tech: Mariia Choi [place] Tech:Kathy Parker ELMIRA RT(R)(N) Ht: 6 ft 4 in Wt: 220 lbs HR: 82 bpm BP: 137/84 mmHg BSA: 2.31 m2 Rhythm: NSR TID: 1.29 BMI: 26.7 History: chest pain..soa Procedure: Patient exercised on Estrada protocol 6:30 minutes and sec, resting heart rate 82 bpm, resting blood pressure 137/84 mmHg, with exercise maximum heart rate achived was 162 bpm which is 105 % of the maximum predicted heart rate and blood pressure was 208/88 mmHg. Patient denied any complaint of chest pain. Patient has Average exercise capacity, achieved 7.0 METs of workload on treadmill, the blood pressure response to exercise was Hypertensive. Cardiac Stress and Resting SPECT Images: Cardiac Stress and Resting SPECT images were obtained using technetium 99m Myoview 31.0 mCi stress and 10.42 mCi at rest. Resting and stress imaging in supine and prone positions demonstrate a small sized, moderate, fixed perfusion defect in the basal inferior LV wall. There is increased transient ischemic dilatation ratio (TID 1.29), suggestive of possible multivessel disease or balanced ischemia. Gated imaging demonstrates moderate reduction in global LV systolic function. There is severe hypokinesis in the basal inferior LV wall. LVEF is calculated at 38%. Of note, however, the LVEF calculation may be inaccurate in the setting of frequent PVCs. Conclusion: Small sized, moderate, fixed perfusion defect in the basal inferior LV wall. Increased transient ischemic dilatation ratio (TID 1.29), suggestive of possible multivessel disease or balanced ischemia. Gated imaging demonstrates moderate reduction in global LV systolic function. There is severe hypokinesis in the basal inferior LV wall. LVEF is calculated at 38%. Of note, however, the LVEF calculation may be inaccurate in the setting of frequent PVCs. Of note, the patient had an exaggerated hypertensive BP response to exercise at peak stress. BP control is recommended. Electronically signed by : Amelia Tracey MD 01/20/2024 02:31:54
--- NOTE | 2024-01-17 13:28 | CA_ITS ---
APPROVED REPORT Exam: Exercise Treadmill Technologist: Mariia Colon, Ht: 6 ft 4 in Wt: 226 lbs BSA: 2.33 m2 HR: 74 bpm BP: 123/85 mmHg Rhythm: NSR Medical History Medications: Aspirin,,,,, SyMBICORT,,,,, TAMSULOSIN,,,,, Lipitor,,,,, Albuterol,,,,, MeLOXICAM,,,,, Valsartan,,,,, Plavix,,,,, BisOPROLOL Fumarate,,,,, BenzONATATE,,,,, Finasteride,,,,, Voltaren,,,,, Stress Test Details Test: Estrada HR Resting HR: 82 bpm Max Heart Rate (APMHR): 154 bpm Max HR Achieved: 162 bpm Target HR (85% APMHR): 131 bpm % of APMHR: 105 Recovery HR: 88 bpm HR response to stress: Normal HR response to stress BP Resting BP: 137.0/84.0 mmHg Max BP: 208.0/88.0 mmHg Recovery BP: 126.0/83.0 mmHg BP response to stress: Abnormal hypertensive response to stress. ECG Resting ECG: NSR, poor R wave progrssion, PVCs. Stress EC mm horizontal ST depression Arrhythmia: PVCs, 1 ventricular couplet Recovery ECG: Return to baseline within 5 minutes of recovery Recovery Arrhythmia: PVCs Clinical Exercise duration: 06:30 min Highest Stage Achieved: III Exercise capacity: 7.0 METs Overall Exercise Capacity for Age: Average Stress ECG Conclusion The patient was able to exercise for a total of 6 minutes, 30 seconds. He achieved a total of 7.0 METS. He has average exercise capacity compared to age and sex matched peers. He has normal HR, but exaggerated hypertensive BP, response to exercise. Max HR: 160 bpm % of PM: 104% Max BP: 208/88 mmHg METs: 7.0 Test stopped due to: SOA, Fatigue Symptoms: No CP. Arrhythmias/Ectopy: Occasional isolated PVC, [address]-T Changes: [address] depression Conclusion: Average exercise capacity. Hypertensive BP response to exercise. ECG stress test suggestive of possible ischemia. Myoview imags reported separately. Test Summary REST . . . . . . . Sitting REST . . . . . . . Standing REST . . . . . . . Standing REST 06:21 0.0 0.0 82 . 137/ 84 . . Stage 1 01:00 10.0 1.7 105 . . . . Stage 1 02:00 10.0 1.7 115 . . . . Stage 1 03:00 10.0 1.7 117 . 180/ 90 . . Stage 2 01:00 12.0 2.5 136 . . . . Stage 2 02:00 12.0 2.5 142 . . . . Stage 2 . . . . . . . Cardiolite injected Stage 2 03:00 12.0 2.5 150 . 208/ 88 . . Stage 3 00:30 14.0 3.4 160 . . . Stop exercise at 06:30 RECOVERY 01:00 0.0 0.0 132 . . . . RECOVERY 02:00 0.0 0.0 100 . . . . RECOVERY 03:00 0.0 0.0 93 . 182/ 77 . . RECOVERY 04:00 0.0 0.0 89 . 155/ 77 . . RECOVERY 05:00 0.0 0.0 88 . 126/ 83 . . RECOVERY 05:24 0.0 0.0 86 . 126/ 83 . . Electronically signed by : Amelia Tracey MD 01/20/2024 02:27:53
[2024-01-17] MEDS: SODIUM CHLORIDE 0.9% 10ML SYR (RAD ONLY) 10 ML IV ×2 (13:30)
[2024-01-17] MEDS: ISOTOPE MYOVIEW (PER STUDY) 1 DOSE IV (13:30)
== END 2024-01-17 23:59 ==
LOC: RAD 11:23
PROVIDERS: Visit Provider Physician Assistant
DX: K21.9 Gastro-esophageal reflux disease without esophagitis; R06.09 Other forms of dyspnea; R07.89 Other chest pain; R07.9 Chest pain, unspecified; R94.31 Abnormal electrocardiogram [ECG] [EKG]; I42.8 Other cardiomyopathies
CPT/HCPCS: 78452; 93017; 93018; A9502

== ENCOUNTER 2024-01-24 07:47 | Outpatient (CLI) | payer MEDICARE, OTHER, SELFPAY ==
[2024-01-23 15:00] LABS: Basophils % 0.1 % (0.1-2.0); Eosinophils # 0.2 K/mm3 (0.0-0.4); Hematocrit 42.6 % (42.0-52.0); Hemoglobin 14.8 g/dL (14.1-18.0); Lymphocytes # 1.1 K/mm3 (0.7-4.5); Lymphocytes % 13.4 % (10-50); Mean Corpuscular HGB Conc 34.7 g/dL (31.8-35.4); Mean Corpuscular Hemoglobin 33.7 pg (27.0-31.2); Mean Corpuscular Volume 97.1 fl (80-94); Mean Platelet Volume 8.1 fl (7.4-10.4); Monocytes # 0.5 K/mm3 (0.1-1.0); Monocytes % 6.6 % (1.7-9.3); Neutrophils # 6.2 K/mm3 (1.8-7.8); Neutrophils % 77.9 % (37.0-80.0); Platelet Count 148 K/mm3 (142-424); Red Blood Count 4.39 M/mm3 (4.60-6.20); Red Cell Distribution Width 14.3 % (11.5-17.5)
[2024-01-23 15:57] LABS: Alanine Aminotransferase 28 U/L (12-78); Alkaline Phosphatase 93 U/L (38-126); Anion Gap 9.5 mEq/L (5-15); Aspartate Amino Transferase 28 U/L (17-59); Bilirubin,Direct 0.1 mg/dl (0.0-0.4); Bilirubin,Indirect 0.7 mg/dL (0.0-0.9); Bilirubin,Total 0.8 mg/dl (0.2-1.3); Bilirubin,Unconjugated 0.8 mg/dL (0.0-1.1); Blood Urea Nitrogen 13 mg/dl (9-20); Calcium 9.8 mg/dl (8.4-10.2); Carbon Dioxide 30 mmol/L (22.0-30.0); Chloride 104 mmol/L (98-107); Chol/HDL Ratio 4.5 (1-3.5); Cholesterol 186 mg/dl (140-200); Estimated Glomerular Filt Rate 97 ml/min (>60); GFR (African American) 117 ML/MIN (>60); Glucose 92 mg/dl (74-100); HDL Cholesterol 41 mg/dl (40-60); Potassium 4.5 mmoL/L (3.5-5.1); Sodium 139 mmol/L (136-145); Total Protein,Serum 6.3 g/dl (6.3-8.2); Triglycerides 192 mg/dl (30-150); VLDL Cholesterol 38 mg/dL (0-40)
[2024-01-23 16:09] LABS: Direct LDL Cholesterol 97.11 mg/dL (100-129)
[2024-01-23 16:10] LABS: Troponin I < 0.01 ng/ml (0.00-0.034)
[2024-01-23 16:16] LABS: Free T4 (Free Thyroxine) 0.87 ng/dl (0.78-2.19)
[2024-01-23 16:29] LABS: Thyroid Stimulating Hormone 1.46 uIU/mL (0.465-4.68)
[2024-01-24] MEDS: ALBUTEROL 0.083% 2.5 MG/3 ML NEB IH (08:40)
--- NOTE | 2024-01-24 08:41 | PC.NURSE ---
PFT and 6 Minute Walk Test completed on Patient without incident Pt given Albuterol 0.083% via HHN, per protocol Pt tolerated tx well.
== END 2024-01-24 23:59 ==
PROVIDERS: Nurse Practitioner Family; Visit Provider Internal Medicine Pulmonary Disease
DX: R06.09 Other forms of dyspnea (principal); I25.10 Atherosclerotic heart disease of native coronary artery without angina pectoris; I50.20 Unspecified systolic (congestive) heart failure; R93.1 Abnormal findings on diagnostic imaging of heart and coronary circulation; R94.31 Abnormal electrocardiogram [ECG] [EKG]; Z79.899 Other long term (current) drug therapy
CPT/HCPCS: 36415; 80048; 80061; 80076; 83735; 84439; 84443; 84484; 85025; 94060; 94618; 94726; 94729

== ENCOUNTER 2024-01-30 10:47 | Day surgery (SDC) | payer MEDICARE, OTHER, SELFPAY ==
[2024-01-30] VITALS (12 sets, daily range): BP systolic 108–159; BP diastolic 63–83; PULSE 60–75; RESP 15–19; O2SAT 92–97; BMI 27.5
--- NOTE | 2024-01-30 09:34 | IR_ITS ---
APPROVED REPORT Patient Location: Outpatient Ict Development Manager: ELMIRA Harrington RT (R) PROCEDURES Selective coronary angiogram Drug-eluting stent deployment to the proximal LAD INDICATION High risk abnormal Myoview, Ischemic cardiomyopathy, Coronary artery disease, Informed consent was obtained prior to the procedure. COMPLICATIONS None Estimated Blood Loss: Less than 10 ml TECHNIQUE One percent lidocaine used to anesthetize the right anterior aspect of the wrist. The right radial artery was accessed via the Seldinger technique. A 6 Norwegian sheath was placed in the right radial artery. 2.5 mg of Verapamil, 800 mcg of nitroglycerin, 1mg Lidocaine and 5000 U Heparin were given through the arterial sheath. The papa catheter was also used to perform selective coronary angiogram. At the end of the diagnostic angiogram therapeutic heparin was administered giving a therapeutic ACT and the guide catheter was placed in left main artery followed by Choice PT extra-support wire down the LAD. A 4 mm x 38 mm [place] frontier stent was deployed in the proximal LAD at 18 nicole reducing the severe stenosis to 0%. TERRI II flow was present at the beginning of the procedure with TERRI-3 flow at the end the procedure. The end the procedure the apparatus was removed the sheath was removed and hemostasis was achieved using TR banding patient was transferred to the postop holding in stable condition ANGIOGRAPHIC RESULTS The left main artery Normal The left anterior descending artery Has proximal 60 and 70% stenosis followed by a stent in the proximal to mid segment which is widely patent free of in-stent restenosis with excellent proximal distal transitioning. A large diagonal artery is also widely patent The circumflex artery Nondominant and widely patent The right coronary artery Large dominant normal The MIRELES ventriculogram reveals Was not performed The left ventricular end-diastolic pressure Was not measured IMPRESSION Severe proximal LAD disease as described above Successful stent to the proximal ID severe disease reduced to 0% with 1 drug-eluting stent improving TERRI II flow to TERRI-3 flow PLAN 1. Dual antiplatelet therapy 2. Risk factor modification 3. Cardiac rehabilitation 4. LDL less than 55 to be achieved with high intensity statin 5. Avoidance of tobacco products Electronically signed by : Fred Toscano MD 01/30/2024 13:16:34
[2024-01-30 11:28] LABS: Basophils % 0.6 % (0.1-2.0); Eosinophils # 0.2 K/mm3 (0.0-0.4); Eosinophils % 3.2 % (0.1-12.0); Hematocrit 43.7 % (42.0-52.0); Hemoglobin 14.7 g/dL (14.1-18.0); Lymphocytes % 18.7 % (10-50); Mean Corpuscular HGB Conc 33.6 g/dL (31.8-35.4); Mean Corpuscular Hemoglobin 33.8 pg (27.0-31.2); Mean Corpuscular Volume 100.6 fl (80-94); Mean Platelet Volume 8.4 fl (7.4-10.4); Monocytes # 0.4 K/mm3 (0.1-1.0); Monocytes % 6.7 % (1.7-9.3); Neutrophils # 3.9 K/mm3 (1.8-7.8); Neutrophils % 70.8 % (37.0-80.0); Platelet Count 206 K/mm3 (142-424); Red Blood Count 4.35 M/mm3 (4.60-6.20); Red Cell Distribution Width 14.2 % (11.5-17.5); White Blood Count 5.5 K/mm3 (4.8-10.8)
[2024-01-30 11:34] LABS: Potassium 4.1 mmoL/L (3.5-5.1)
[2024-01-30 11:36] LABS: Anion Gap 11.1 mEq/L (5-15); Blood Urea Nitrogen 12 mg/dl (9-20); Calcium 9.1 mg/dl (8.4-10.2); Carbon Dioxide 27 mmol/L (22.0-30.0); Chloride 105 mmol/L (98-107); Creatinine Clearance Estimated 105 mL/min (50-200); Estimated Glomerular Filt Rate 84 ml/min (>60); GFR (African American) 102 ML/MIN (>60); Glucose 88 mg/dl (74-100); Sodium 139 mmol/L (136-145)
[2024-01-30] MEDS: ASPIRIN 81MG CHEWABLE TABLET 81 MG PO (11:57)
[2024-01-30] MEDS: diphenhydrAMINE 50MG/ML VIAL 50 MG IV (12:28)
[2024-01-30] MEDS: NITROGLYCERIN 800MCG/8ML SYR (CATH LAB) 800 MCG IA (12:28)
[2024-01-30] MEDS: VERAPAMIL 2.5MG/ML 2ML VIAL 2.5 MG IV (12:28)
[2024-01-30] MEDS: LIDOCAINE 1% 10ML MDV 20 ML IJ (12:29)
[2024-01-30] MEDS: HEPARIN 1,000 UNITS/ML 10ML VIAL (CATH LAB) 10000 UNIT IV (12:29)
[2024-01-30] MEDS: 0.9 % SODIUM CHLORIDE 500 ML 25 ML IV (12:31)
[2024-01-30] MEDS: HEPARIN 1,000 UNITS/500ML NS (CATH LAB) 3000 UNIT IV (12:31)
[2024-01-30] MEDS: MIDAZOLAM HCL 1MG/1ML 5ML VIAL 1 MG IV (12:37)
[2024-01-30] MEDS: FENTANYL 100MCG/2ML VIAL 50 MCG IV (12:37)
[2024-01-30 14:43] LABS: CATHL Activated Clotting Time 242 SEC (74-125)
== END 2024-01-30 16:27 | disposition home or self-care (01) ==
PROVIDERS: Visit Provider Internal Medicine
DX: R93.1 Abnormal findings on diagnostic imaging of heart and coronary circulation (principal); I50.21 Acute systolic (congestive) heart failure; R94.31 Abnormal electrocardiogram [ECG] [EKG]; R06.09 Other forms of dyspnea; I25.118 Atherosclerotic heart disease of native coronary artery with other forms of angina pectoris; Z79.899 Other long term (current) drug therapy; I25.5 Ischemic cardiomyopathy; I11.0 Hypertensive heart disease with heart failure
CPT/HCPCS: 36415; 80048; 85025; 85347; 92928; 93454; 99152; C1725; C1760; C1769; C1876; C9600; J1644

== ENCOUNTER 2024-02-18 12:54 | Outpatient (CLI) | payer MEDICARE, OTHER, SELFPAY ==
--- NOTE | 2024-02-18 12:56 | CA_ITS ---
APPROVED REPORT EXAM: Comprehensive 2D, Doppler, and color-flow Echocardiogram Lead Software Tester: Tasha Mejias RT(R) Ht: 6 ft 4 in Wt: 225lbs BSA: 2.33 BP: 120/76 mmHg Indications: SOA, MONREAL, hyperlipidemia, GERD, CAD, HFrEF, abn EKG, pulmonary fibrosis 2D Dimensions LVEF (Isabel's) 50.80 % M: 52 - 72 LV Volume 131.90 mL M: 62 - 150 LV Volume Index 56.6 mL/m2 M: 34 - 74 LA Volume 49.70 mL LA Volume Index 21.33 mL/m2 (M/F) 16-34 EF AP4 48.10 % EF AP2 50.9 % EF BP 50.8 % GL Strain -15.2 % M-Mode Dimensions RVDd 2.76 cm (0.9-2.6) LA Diam 3.62 cm (1.9-4.0) LVDd 4.80 cm (3.5-5.7) LVDs 3.65 cm (3.5-5.7) IVSd 0.89 cm (0.6-1.1) PWd 0.89 cm (0.6-1.1) EF (Teich) 47.60% FS 24.00% EDV (Teich) 107.50 mL ESV (Teich) 56.30 mL LV Diastology E Decel Time 213 (160-240 msec) E/A Ratio 0.6 Mitral Valve MV E Max Luis Alberto. 47.0 (40-130 cm/s) MV A Velocity 73.0 (40-130 cm/s) E/A Ratio 0.64 MV PHT 62.0 ms Left Ventricle The left ventricle is normal size. The left ventricular systolic function is low-normal. The left ventricular ejection fraction is within the normal range. There is normal left ventricular wall thickness. There is borderline global hypokinesis present. The left ventricular diastolic function is normal. LVEF is 50%. Right Ventricle The right ventricle is normal size. The right ventricular systolic function is normal. Atria The left atrium size is normal. The right atrium size is normal. There is no Doppler evidence of interatrial shunt. Aortic Valve The aortic valve is mildly thickened. There is no aortic valvular stenosis. Mild aortic regurgitation. Mitral Valve The mitral valve is normal in structure. No evidence of mitral valve stenosis. Trace mitral regurgitation. Tricuspid Valve The tricuspid valve leaflets are thin and pliable. Trace tricuspid regurgitation. There is insufficient TR jet to estimate RVSP. Pulmonic Valve The pulmonary valve is normal in structure. Trace pulmonic regurgitation. Great Vessels The aortic root is normal in size. The ascending aorta is normal in size. The IVC is not well visualized. Pericardium There is no pericardial effusion. Other Information Study Quality: Technically Difficult Conclusion Technically difficult study due to poor acoustic windows. Low normal LV systolic function. Mild AI. Electronically signed by : Amelia Tracey MD 02/20/2024 23:15:12
== END 2024-02-18 23:59 ==
LOC: RT 12:56
PROVIDERS: Visit Provider Nurse Practitioner Family
DX: R06.09 Other forms of dyspnea (principal); I25.10 Atherosclerotic heart disease of native coronary artery without angina pectoris; I50.20 Unspecified systolic (congestive) heart failure; R93.1 Abnormal findings on diagnostic imaging of heart and coronary circulation; R94.31 Abnormal electrocardiogram [ECG] [EKG]
CPT/HCPCS: 93306

== ENCOUNTER 2024-02-18 13:27 | Outpatient (RCR) | payer MEDICARE, OTHER, SELFPAY | END 2024-03-21 11:30 | disposition home or self-care (01) | LOC: PT 13:27 | PROVIDERS: Visit Provider Nurse Practitioner Family | DX: I25.119 Atherosclerotic heart disease of native coronary artery with unspecified angina pectoris (principal); I50.20 Unspecified systolic (congestive) heart failure | CPT/HCPCS: 93798 ==

== ENCOUNTER 2024-04-10 10:54 | Outpatient (CLI) | payer MEDICARE, OTHER, SELFPAY ==
--- NOTE | 2024-04-10 11:00 | XR_ITS ---
FINAL REPORT CLINICAL HISTORY: Wrist pain FINDINGS: Left wrist Three views were obtained. There is no acute fracture or dislocation. There are mild degenerative changes at the radial aspect of the wrist. No soft tissue abnormality is identified. IMPRESSION: No acute process. Reviewed, Interpreted and Dictated by Alec Caldwell III, MD Transcribed by Opal Ellis Authenticated and [facility]
--- NOTE | 2024-04-10 11:00 | XR_ITS ---
FINAL REPORT CLINICAL HISTORY: Wrist pain FINDINGS: Right wrist Three views were obtained. There is no acute fracture or dislocation. Mild degenerative changes are present. There is widening of the scapholunate interval, likely represent scapholunate ligament tear. No soft tissue abnormality is identified. IMPRESSION: Possible scapholunate ligament tear. This could be further evaluated with MRI. Reviewed, Interpreted and Dictated by Alec Caldwell III, MD Transcribed by Opal Ellis Authenticated and [facility]
== END 2024-04-10 23:59 | disposition home or self-care (01) ==
LOC: RAD 10:56
PROVIDERS: Visit Provider Orthopaedic Surgery
DX: M25.531 Pain in right wrist (principal); M25.532 Pain in left wrist
CPT/HCPCS: 73110

== ENCOUNTER 2024-04-15 12:04 | Emergency (ER) | payer MEDICARE, OTHER, SELFPAY ==
[2024-04-15 12:20] VITALS: BP 112/56; PULSE 86; RESP 18; TEMP 36.7; O2SAT 96; BMI 25.9
--- NOTE | 2024-04-15 12:50 | EXP.UTC ---
Discharge Plan Disposition Patient Disposition: Home, Self-Care Condition: Good Prescriptions Prescriptions: New doxycycline hyclate 100 mg capsule 100 mg PO BID 10 Days Qty: 20 0RF benzonatate 100 mg capsule 100 mg PO TID PRN (Reason: cough) Qty: 30 0RF methylprednisolone [Medrol (Santana)] 4 mg tablets,dose pack See Rx Instructions .Route .COMPLEX 6 Days Qty: 21 0RF Rx Instructions: taper pack; guaifenesin [Mucinex] 600 mg tablet extended release 12hr 1,200 mg PO BID PRN (Reason: cough) Qty: 20 0RF No Action aspirin [Adult Low Dose Aspirin] 81 mg tablet,delayed release (DR/EC) 81 mg PO DAILY Qty: 90 3RF bisoprolol fumarate 5 mg tablet 5 mg PO QHS Qty: 90 3RF tamsulosin 0.4 mg capsule PO Patient Comments: TAKE 1 CAPSULE BY MOUTH ONCE DAILY finasteride 5 mg tablet PO meloxicam 7.5 mg tablet 7.5 mg PO ONCE Qty: 30 2RF diclofenac sodium [Voltaren Arthritis Pain] 1 % gel 4 g topical QID PRN (Reason: pain) Qty: 100 2RF Rx Instructions: apply to single knee, ankle, foot; for foot includes sole/toes/top of foot meloxicam 15 mg tablet PO calcium carbonate-vitamin D3 600 mg-10 mcg (400 unit) capsule PO Patient Comments: TAKE 1 TABLET BY MOUTH ONCE EVERY MORNING Abrysvo 120 mcg/0.5 mL recon soln IM .prn isosorbide mononitrate 30 mg tablet extended release 24 hr 30 mg PO DAILY Qty: 30 3RF sildenafil (pulm.hypertension) 20 mg tablet 20 mg PO DAILY PRN (Reason: hpertension) Patient Comments: TAKE 1 TABLET BY MOUTH NEEDED Arexvy (PF) 120 mcg/0.5 mL suspension for reconstitution 0.5 ml IM ONCE Qty: 1 0RF clopidogrel [Plavix] 75 mg tablet 75 mg PO DAILY Qty: 90 3RF budesonide-formoterol [Symbicort] 160-4.5 mcg/actuation HFA aerosol inhaler 2 puff inhalation BID 90 Days Qty: 10.2 3RF benzonatate 200 mg capsule 200 mg PO TID PRN (Reason: cough) Qty: 30 0RF dextromethorphan-guaifenesin 60-1,200 mg tablet extended release 12 hr 1 tab PO Q12H Qty: 60 0RF albuterol sulfate 90 mcg/actuation HFA aerosol inhaler 2 puff inhalation Q4-6H PRN (Reason: shortness of breath or wheezing) Qty: 8.5 0RF doxycycline hyclate 100 mg tablet 100 mg PO BID Qty: 20 0RF atorvastatin [Lipitor] 80 mg tablet 80 mg PO DAILY Qty: 90 3RF Referrals Follow up/Referrals: Provider,Referral, MD [Primary Care Provider] - See instructions Activity Restrictions/Add. Instructions Additional Instructions/Restrictions: Start antibiotic today. Be sure to complete entire prescription even if feeling better Monitor temp. Tylenol every 4 hours as needed and / or ibuprofen every 6 hours as needed ( As long as your primary care physician has told you that it ok to take both. For fever/aches/pains ER if no less than 101 despite Tylenol or Motrin Humidifier/vaporizer or hot steamy shower Mucinex during the day for your cough and cough suppressant only at night. Be sure to drink lots of water. *Tessalon Perles will not cause drowsiness but use at bedtime to help stop cough so that you may get some rest. *Start steroid today. Helps with inflammation therefore, cough and wheezing. Follow directions on the package. Reviewed side effects. Patient reports taking them before. Follow up IMMEDIATELY for new or worsening of symptoms OR no noticeable improvement over the next 48-72 hours. 911 immediately for any life threatening symptoms such as chest pain or difficulty breathing Clinical Impressions Clinical Impression: Sinusitis, Bronchitis Instructions Patient Instructions: DI for Sinusitis, Acute Bronchitis, Doxycycline Discharge ED Provider: Callie Villa [facility] General Stated complaint: congestion, cough Mode of Arrival: Ambulatory Source of Information: Patient Limitations: No Limitations Time Seen by Provider: 04/15/24 12:50 Description of Symptoms (Recalled from Triage Doc. by RN): Pt's symptoms are productive cough, and congestion. HEENT Symptoms (Recalled from RN notes): Yes Resp Symptoms (Recalled from RN notes): No Skin Symptoms (Recalled from RN notes): No MS Symptoms (Recalled from RN notes): No Functional Status (Recalled from RN notes): n/a History of Present Illness Provider Complaint: Patient states that he has been having sinus congestion and pressure, drainage in the back of his throat and productive cough at times States his throat feels irritated from drainage and coughing and today he wasnt feeling any better so he came in to get checked Related Data Home Medications Medication Instructions Recorded Confirmed sildenafil (pulm.hypertension) 20 20 mg PO DAILY PRN hpertension 01/17/23 04/10/24 mg tablet finasteride 5 mg tablet mg PO 11/13/23 04/10/24 tamsulosin 0.4 mg capsule mg PO 11/13/23 04/10/24 RSV vac, preF A and preF B(PF) 120 ml IM .prn 01/23/24 04/10/24 mcg/0.5 mL IM solution (Abrysvo) calcium carbonate 600 mg-vitamin cap PO 01/23/24 04/10/24 D3 10 mcg (400 unit) capsule meloxicam 15 mg tablet mg PO 01/23/24 04/10/24 Previous Rx's Medication Instructions Recorded aspirin 81 mg tablet,delayed 81 mg PO DAILY Heart disease #90 04/17/23 release (Adult Low Dose Aspirin) tabs bisoprolol fumarate 5 mg tablet 5 mg PO QHS htn #90 tabs 04/17/23 RSVPreF3 antigen-AS01E 0.5 ml IM ONCE #1 ea 07/23/23 adjuvant(PF) 120 mcg/0.5 mL IM suspension, kit (Arexvy (PF)) clopidogrel 75 mg tablet (Plavix) 75 mg PO DAILY #90 tabs 07/23/23 atorvastatin 80 mg tablet (Lipitor) 80 mg PO DAILY Cholesterol #90 tabs 08/20/23 albuterol sulfate 90 mcg/actuation 2 puff inhalation Q4-6H PRN 11/07/23 aerosol inhaler shortness of breath or wheezing #8.5 grams benzonatate 200 mg capsule 200 mg PO TID PRN cough #30 caps 11/07/23 dextromethorphan-guaifenesin ER 60 1 tab PO Q12H #60 tabs 11/07/23 mg-1,200 mg tab,extend release,12hr doxycycline hyclate 100 mg tablet 100 mg PO BID #20 tabs 11/07/23 diclofenac sodium 1 % topical gel 4 g topical QID PRN pain #100 grams 11/13/23 (Voltaren Arthritis Pain) meloxicam 7.5 mg tablet 7.5 mg PO ONCE pain #30 tabs 11/13/23 isosorbide mononitrate 30 mg 30 mg PO DAILY #30 tabs 01/23/24 tablet,extended release 24 hr budesonide-formoterol HFA 160 2 puff inhalation BID shortness of 01/30/24 mcg-4.5 mcg/actuation aerosol breath or wheezing 90 days #10.2 inhaler (Symbicort) grams benzonatate 100 mg capsule 100 mg PO TID PRN cough #30 caps 04/15/24 doxycycline hyclate 100 mg capsule 100 mg PO BID 10 days #20 caps 04/15/24 guaifenesin 600 mg tablet, 1,200 mg (2 x 600 mg) PO BID PRN 04/15/24 extended release 12 hr (Mucinex) cough #20 tabs methylprednisolone 4 mg tablets in See Rx Instructions .Route 04/15/24 a dose pack (Medrol (Santana)) .COMPLEX 6 days #21 tabs Allergies Allergy/AdvReac Type Severity Reaction Status Date / Time No Known Allergies Allergy Verified 04/15/24 12:48 Worker's Comp Is this a Worker's Comp case?: No [facility] Disclaimer: The information contained in this section may have been updated after the patient was seen, as this information can be updated by other users. Medical History Asthma Preventative health care LV dysfunction Restrictive lung disease Pulmonary fibrosis, unspecified ILD (interstitial lung disease) Chest tightness Dyspnea on exertion GERD (gastroesophageal reflux disease) SOB (shortness of breath) Sinusitis Surgical History History of cardiac cath History of removal of cyst History of right shoulder replacement History of tonsillectomy History of appendectomy History of cholecystectomy History of thyroid surgery Family History Other Diabetes Heart disease Hypertension Social History Smoking Status: Never smoker alcohol intake: never substance use type: denies use current occupational status: retired and other Travel in the last 8 weeks: None household members: family housing: house current occupation: tank truck operator current occupational exposures/hazards: No caffeine: Yes ROS Obtained: Yes All systems reviewed & no additional complaints except as documented and Yes Systems reviewed as appropriate & no additional complaints except as documented Constitutional Constitutional: Reports system reviewed and no additional complaints, except as documented and Reports as per HPI ENT Ears, Nose, Mouth, and Throat: Reports system reviewed and no additional complaints, except as documented, Reports as per HPI, Reports sinus pain and Reports sinus pressure Cardiovascular Cardiovascular: Reports system reviewed and no additional complaints, except as documented and Reports as per HPI Respiratory Respiratory: Reports system reviewed and no additional complaints, except as documented, Reports as per HPI, Reports chest congestion and Reports cough Gastrointestinal Gastrointestingal: Reports system reviewed and no additional complaints, except as documented and as per HPI Physical Exam General General appearance: alert and in no apparent distress ENT ENT exam: Present mucous membranes moist Expanded ENT Exam Nose exam: Present sinus tenderness Throat exam: Present other (Pharyngeal erythema noted with PND) Respiratory Respiratory exam: Present normal lung sounds bilaterally; Absent respiratory distress or wheezes Cardiovascular Cardiovascular exam: Present regular rate, normal rhythm and normal heart sounds Neurological Exam Neurological exam: Present alert, oriented X3 and normal gait Medical Decision Making Nikhil Inquiry Pt receiving controlled substance: No Nikhil was queried for this patient: No Vital Signs: 04/15/24 12:20 Temperature 98.0 F Temperature Source Oral Pulse Rate [Right Radial] 86 Respiratory Rate 18 Blood Pressure [Right Arm] 112/56 L Blood Pressure Mean [Right Arm] 74 Blood Pressure Source [Right Arm] Automatic Cuff Blood Pressure Position [Right Arm] Sitting 02 Sat by Pulse Oximetry 96 Oxygen Delivery Method Room Air Medical Decision Narrative: Patient has taken doxy and medrol in the past without complications or reactions
[2024-04-15 13:10] VITALS: BP 112/56; PULSE 86; RESP 18; TEMP 36.7; O2SAT 95
== END 2024-04-15 13:10 | disposition home or self-care (01) ==
PROVIDERS: Emergency Provider Nurse Practitioner
DX: J20.9 Acute bronchitis, unspecified (principal); J01.90 Acute sinusitis, unspecified; R09.82 Postnasal drip; R05.9 Cough, unspecified; R07.0 Pain in throat
CPT/HCPCS: 99204; 99212; G0463

== ENCOUNTER 2024-06-30 11:44 | Outpatient (CLI) | payer MEDICARE, OTHER, SELFPAY ==
[2024-06-30 12:10] LABS: Basophils % 0.5 % (0.1-2.0); Eosinophils # 0.1 K/mm3 (0.0-0.4); Eosinophils % 1.9 % (0.1-12.0); Hematocrit 39.7 % (42.0-52.0); Lymphocytes # 0.6 K/mm3 (0.7-4.5); Lymphocytes % 10.4 % (10-50); Mean Corpuscular HGB Conc 32.8 g/dL (31.8-35.4); Mean Corpuscular Hemoglobin 32.3 pg (27.0-31.2); Mean Corpuscular Volume 98.4 fl (80-94); Mean Platelet Volume 8.2 fl (7.4-10.4); Monocytes # 0.5 K/mm3 (0.1-1.0); Monocytes % 9.3 % (1.7-9.3); Neutrophils # 4.2 K/mm3 (1.8-7.8); Neutrophils % 77.9 % (37.0-80.0); Platelet Count 132 K/mm3 (142-424); Red Blood Count 4.04 M/mm3 (4.60-6.20); Red Cell Distribution Width 15.1 % (11.5-17.5); White Blood Count 5.4 K/mm3 (4.8-10.8)
[2024-06-30 12:40] LABS: Albumin Level 3.7 g/dl (3.5-5.0); Chloride 104 mmol/L (98-107)
[2024-06-30 12:41] LABS: Potassium 4.1 mmoL/L (3.5-5.1); Sodium 138 mmol/L (136-145)
[2024-06-30 12:43] LABS: Alanine Aminotransferase 27 U/L (12-78); Anion Gap 7.1 mEq/L (5-15); Aspartate Amino Transferase 23 U/L (17-59); Blood Urea Nitrogen 13 mg/dl (9-20); Carbon Dioxide 31 mmol/L (22.0-30.0); Estimated Glomerular Filt Rate 84 ml/min (>60); GFR (African American) 102 ML/MIN (>60)
[2024-06-30 12:44] LABS: Albumin/Globulin Ratio 1.8 (1.1-1.8); Alkaline Phosphatase 81 U/L (38-126); Calcium 9.1 mg/dl (8.4-10.2); Globulin 2.1 g/dL (1.3-3.2); Glucose 113 mg/dl (74-100); Total Protein,Serum 5.8 g/dl (6.3-8.2)
== END 2024-06-30 23:59 | disposition home or self-care (01) ==
LOC: LAB 11:45
PROVIDERS: Visit Provider Orthopaedic Surgery
DX: G56.03 Carpal tunnel syndrome, bilateral upper limbs (principal)
CPT/HCPCS: 36415; 80053; 85025

== ENCOUNTER 2024-08-25 07:10 | Day surgery (SDC) | payer MEDICARE, OTHER, SELFPAY ==
[2024-08-20 16:57] VITALS: BMI 29.0
[2024-08-25 07:26] VITALS: BP 119/75; PULSE 100; RESP 18; TEMP 36.6; O2SAT 94
--- NOTE | 2024-08-25 07:39 | EXP.ANES.CKL ---
[facility] Disclaimer: The information contained in this section may have been updated after the patient was seen, as this information can be updated by other users. Medical History Asthma Preventative health care LV dysfunction Restrictive lung disease Pulmonary fibrosis, unspecified ILD (interstitial lung disease) Chest tightness Dyspnea on exertion GERD (gastroesophageal reflux disease) SOB (shortness of breath) Sinusitis Surgical History History of cardiac cath History of removal of cyst History of right shoulder replacement History of tonsillectomy History of appendectomy History of cholecystectomy History of thyroid surgery Family History Other Diabetes Heart disease Hypertension Social History Smoking Status: Never smoker alcohol intake: never substance use type: denies use current occupational status: retired and other Travel in the last 8 weeks: None household members: family housing: house current occupation: operator and truck driver current occupational exposures/hazards: No caffeine: Yes [facility] Anesthesia Checklist Patient Identification Patient Identification: Verbal (Name & ) Structural Data Admitted From: Home Planned Operative Procedure/s: r carpal tunnel NPO Status Verified Time NPO: 00:00 Additional verifications Anesthesia Reactions: No Hx Blood Transfusions: No Airway Assessment Mallampati Score:: Class II C-Spine Mobility Assessed: Yes TMJ Mobility Assessed: Yes Dentition: Good Dentition Neurological Assessment Level of Consciousness: Awake, Alert and Appropriate Anesthesia Plan Anesthesia Risk discussed: Yes Anesthesia Plan: Verified ASA Class: III Anesthesia Type: MAC
[2024-08-25] MEDS: LACTATED RINGERS 1000ML 1,000 ML 100 ML IV (08:10)
[2024-08-25 08:13] LABS: Chloride 95 mmol/L (98-107); Potassium 3.4 mmoL/L (3.5-5.1); Sodium 134 mmol/L (136-145)
[2024-08-25 08:16] LABS: Anion Gap 12.4 mEq/L (5-15); Blood Urea Nitrogen 19 mg/dl (9-20); Calcium 9.6 mg/dl (8.4-10.2); Carbon Dioxide 30 mmol/L (22.0-30.0); Creatinine Clearance Estimated 109 mL/min (50-200); Estimated Glomerular Filt Rate 84 ml/min (>60); GFR (African American) 102 ML/MIN (>60); Glucose 117 mg/dl (74-100)
[2024-08-25 08:17] LABS: Basophils % 0.7 % (0.1-2.0); Eosinophils # 0.2 K/mm3 (0.0-0.4); Eosinophils % 3.7 % (0.1-12.0); Hematocrit 43.7 % (42.0-52.0); Hemoglobin 14.7 g/dL (14.1-18.0); Lymphocytes % 19.8 % (10-50); Mean Corpuscular HGB Conc 33.5 g/dL (31.8-35.4); Mean Corpuscular Hemoglobin 32.4 pg (27.0-31.2); Mean Corpuscular Volume 96.7 fl (80-94); Mean Platelet Volume 7.2 fl (7.4-10.4); Monocytes # 0.5 K/mm3 (0.1-1.0); Neutrophils # 3.3 K/mm3 (1.8-7.8); Neutrophils % 66.8 % (37.0-80.0); Platelet Count 195 K/mm3 (142-424); Red Blood Count 4.52 M/mm3 (4.60-6.20); Red Cell Distribution Width 14.7 % (11.5-17.5)
[2024-08-25] MEDS: CEFAZOLIN SODIUM 2 GM in 0.9 % SODIUM CHLORIDE 100 ML IV (08:45)
[2024-08-25] MEDS: LIDOCAINE 1% W/EPI 1:100,000 20ML VIAL 20 ML (08:50)
--- NOTE | 2024-08-25 09:02 | P.OP_ITS ---
Date of procedure: 08/25/24 Pre-op Diagnosis:: Right carpal tunnel syndrome Post-op Diagnosis:: Pain Procedure performed:: Right endoscopic carpal tunnel release Surgeon:: Dmitry Guardado DO Fur Cutter(s):: Daniel CAO DIRECTOR DATA PROCESSING:: Maurice Garcia Anesthesia: MAC and local Estimated blood loss (mL): 0 Operative findings:: See dictation Operative note:: Patient is identified preoperatively. Right wrist marked with yes my initials. Then transferred operative suite. Placed upon the operating bed with a hand table. Patient was given sedation. Then the right upper extremity was prepped and draped in normal sterile fashion. Once prepped and draped final operative timeout performed to identify proper patient procedure and extremity. Everyone involved in the case agreed. There were no counter indications to beginning. Did receive preoperative antibiotics. Marking pen was used to carmina plan incision over the volar wrist. Local anesthesia was infiltrated to the area of the incision in the surgery site with 1% lidocaine with epinephrine. Esmarch was used to exsanguinate the extremity pneumatic tourniquet inflated to 250 mmHg. Skin knife is used to incise through skin careful dissection was taken down with retractors to identify the most proximal aspect the transverse carpal ligament. Once identified the small dilator followed by the larger dilator was placed into the carpal tunnel. This was then replaced with a 4.0 mm sled. Through the sled the camera was placed transverse carpal ligament clearly seen superiorly within the wound. The hook probe was then placed to identify the most distal aspect of the transverse carpal ligament. This was followed with a rasp to remove soft tissue from the undersurface of the transverse carpal ligament. The hook blade from the segue endoscopic carpal tunnel system was then utilized for complete release of the transverse carpal ligament which was clearly seen. Irrigation of the wound was performed skin closed with interrupted 4-0 Monocryl sutures and Steri-Strips. Sterile hand dressing placed. Patient waken sedation taken recovery in stable condition. Condition: stable Disposition: PACU Complications:: None apparent
[2024-08-25 09:08] VITALS: BP 113/63; PULSE 96; RESP 18; TEMP 36.6; O2SAT 92
[2024-08-25 09:23] VITALS: BP 123/76; PULSE 85; RESP 18; O2SAT 94
[2024-08-25 09:38] VITALS: BP 120/84; PULSE 86; RESP 18; O2SAT 93
== END 2024-08-25 09:38 | disposition home or self-care (01) ==
PROVIDERS: Visit Provider Orthopaedic Surgery
PROC: (CPT 64721; principal; 2024-08-25 08:30)
DX: G56.01 Carpal tunnel syndrome, right upper limb (principal); Z79.899 Other long term (current) drug therapy
CPT/HCPCS: 29848; 80048; 85025; 96374; J0690; J3010; J7120

== ENCOUNTER 2024-11-17 14:42 | Outpatient (CLI) | payer MEDICARE, OTHER, SELFPAY ==
[2024-11-17 15:21] LABS: Basophils % 0.2 % (0.1-2.0); Eosinophils % 3.6 % (0.1-12.0); Hematocrit 39.8 % (42.0-52.0); Hemoglobin 13.4 g/dL (14.1-18.0); Lymphocytes # 0.9 K/mm3 (0.7-4.5); Mean Corpuscular HGB Conc 33.7 g/dL (31.8-35.4); Mean Corpuscular Hemoglobin 31.8 pg (27.0-31.2); Mean Corpuscular Volume 94.3 fl (80-94); Mean Platelet Volume 9.9 fl (7.4-10.4); Neutrophils # 3.2 K/mm3 (1.8-7.8); Neutrophils % 67.8 % (37.0-80.0); Platelet Count 191 K/mm3 (142-424); Red Blood Count 4.22 M/mm3 (4.60-6.20); Red Cell Distribution Width 13.2 % (11.5-17.5); White Blood Count 4.7 K/mm3 (4.8-10.8)
[2024-11-17 15:22] LABS: Eosinophils # 0.2 K/mm3 (0.0-0.4); Monocytes # 0.5 K/mm3 (0.1-1.0)
[2024-11-17 16:23] LABS: Alanine Aminotransferase 23 U/L (12-78); Albumin Level 3.8 g/dl (3.5-5.0); Alkaline Phosphatase 57 U/L (38-126); Anion Gap 7.6 mEq/L (5-15); Aspartate Amino Transferase 35 U/L (17-59); Bilirubin,Direct 0.4 mg/dl (0.0-0.4); Bilirubin,Indirect 0.3 mg/dL (0.0-0.9); Bilirubin,Total 0.7 mg/dl (0.2-1.3); Bilirubin,Unconjugated 0.3 mg/dL (0.0-1.1); Blood Urea Nitrogen 17 mg/dl (9-20); Calcium 9.2 mg/dl (8.4-10.2); Carbon Dioxide 32 mmol/L (22.0-30.0); Chloride 102 mmol/L (98-107); Chol/HDL Ratio 6.6 (1-3.5); Cholesterol 211 mg/dl (140-200); Estimated Glomerular Filt Rate 96 ml/min (>60); GFR (African American) 117 ML/MIN (>60); Glucose 121 mg/dl (74-100); HDL Cholesterol 32 mg/dl (40-60); Magnesium 1.9 mg/dl (1.6-2.3); Potassium 4.6 mmoL/L (3.5-5.1); Sodium 137 mmol/L (136-145); Total Protein,Serum 5.8 g/dl (6.3-8.2); Triglycerides 288 mg/dl (30-150); VLDL Cholesterol 58 mg/dL (0-40)
[2024-11-17 16:34] LABS: Direct LDL Cholesterol 123.83 mg/dL (100-129)
[2024-11-17 16:40] LABS: Free T4 (Free Thyroxine) 0.78 ng/dl (0.78-2.19)
[2024-11-17 16:54] LABS: Thyroid Stimulating Hormone 1.65 uIU/mL (0.465-4.68)
== END 2024-11-17 23:59 | disposition home or self-care (01) ==
LOC: LAB 14:45
PROVIDERS: Visit Provider Nurse Practitioner
DX: I50.20 Unspecified systolic (congestive) heart failure (principal); I50.84 End stage heart failure; I11.0 Hypertensive heart disease with heart failure; R07.89 Other chest pain; I42.9 Cardiomyopathy, unspecified; I65.29 Occlusion and stenosis of unspecified carotid artery; I25.10 Atherosclerotic heart disease of native coronary artery without angina pectoris; E78.5 Hyperlipidemia, unspecified
CPT/HCPCS: 36415; 80048; 80061; 80076; 83735; 84439; 84443; 85025

== ENCOUNTER 2024-11-20 08:32 | Outpatient (CLI) | payer MEDICARE, OTHER, SELFPAY ==
--- NOTE | 2024-11-20 08:38 | CA_ITS ---
APPROVED REPORT EXAM: Comprehensive 2D, Doppler, and color-flow Echocardiogram District Service Manager: Aicha Sapp, RCS, RVS Ht: 6 ft 4 in Wt: 225lbs BSA: 2.33 BP: 120/76 mmHg Indications: CP, Edema, Pulmonary fibrosis 2D Dimensions Left Atrium 3.65 cm M: 3.0 - 4.0 LA Volume 64.80 mL LA Volume Index 27.569166 mL/m2 (M/F) 16-34 EF AP4 43.90 % GL Strain -15.7 % M-Mode Dimensions RVDd 2.09 cm (0.9-2.6) LA Diam 4.57 cm (1.9-4.0) LVDd 5.57 cm (3.5-5.7) LVDs 3.72 cm (3.5-5.7) IVSd 1.10 cm (0.6-1.1) PWd 1.14 cm (0.6-1.1) EF (Teich) 61.20% EPSs 1.22 cm FS 33.20% EDV (Teich) 151.80 mL TAPSE 2.68 (<1.7) ESV (Teich) 58.90 mL LV Diastology E Decel Time 200 (160-240 msec) E/A Ratio 0.66 MED A' 11.80 cm/s LAT A' 16.10 cm/s Aortic Valve IDRIS Index 1.03 cm2/m2 AoV Peak Luis Alberto. 121.0 (50-130 cm/s) AO Peak GR. 5.90 mmHg AO Mean GR. 2.90 (<5 mmHg) AO VTI 25.4 (18-25 cm) IDRIS (VTI) 2.45 (2.5-4.5 cm2) Mitral Valve MV E Max Luis Alberto. 47.0 (40-130 cm/s) MV A Velocity 72.0 (40-130 cm/s) E/A Ratio 0.66 MV PHT 59.0 ms Tricuspid Valve TR P. Velocity 168.00 cm/s RAP Estimate 10.00 mmHg RVSP 21.30 mmHg Left Ventricle The left ventricle is normal size. The left ventricular systolic function is low normal. There is increased LV wall thickness. There is normal LV segmental wall motion. Grade 1 diastolic dysfunction is present. LVEF is 50%. Right Ventricle Right ventricle is mildly dilated. The right ventricular systolic function is normal. Atria Left atrium is mildly dilated. Right atrium is mildly dilated. There is no Doppler evidence of interatrial shunt. Aortic Valve The aortic valve is mildly thickened. There is no aortic valvular stenosis. Mild aortic regurgitation. Mitral Valve The mitral valve is normal in structure. No evidence of mitral valve stenosis. Mild mitral regurgitation. Tricuspid Valve Tricuspid valve is grossly normal in structure and function. Mild tricuspid regurgitation. RVSP is normal. Pulmonic Valve The pulmonary valve is normal in structure. Trace tricuspid regurgitation. Great Vessels The aortic root is normal in size. IVC is normal in size and collapses >50% with inspiration. Pericardium There is no pericardial effusion. Other Information Study Quality: Fair Conclusion Low normal LV systolic function (LVEF 50%). Mild RV dilation with normal RV function. Mild biatrial dilation. Mild AI, mild MR, mild TR. Electronically signed by : Amelia Tracey MD 12/03/2024 12:16:59
--- NOTE | 2024-11-20 09:12 | CT_ITS ---
FINAL REPORT TECHNIQUE: After the administration of oral and intravenous contrast, axial images were obtained through the abdomen and pelvis by computed tomography. The study was performed with techniques to keep radiation dose as low as reasonably achievable, (ALARA). Individual dose reduction techniques using automated exposure control or adjustment of mA and/or kV according to the patient's size were employed. CLINICAL HISTORY: abdominal distention COMPARISON: 02/11/2020 FINDINGS: Abdomen: The lung bases are clear. A small sliding-type hiatal hernia is noted. The liver parenchyma is homogeneous. The gallbladder is present. There are chronic changes at the lung bases. There is moderate diffuse fatty infiltration of the liver. The gallbladder is surgically absent. There are calcified granulomas in the spleen. The pancreas, adrenals and kidneys appear unremarkable. The aorta is normal in caliber. There is no free fluid or adenopathy. Pelvis: The appendix is not identified. The urinary bladder is incompletely distended. The prostate is enlarged measuring up to 6.7 cm in transverse dimension. There are multiple calcified phleboliths in the floor of the pelvis. There is advanced degenerative disc disease at L5-S1 with grade 1 spondylolisthesis and moderate bilateral neuroforaminal narrowing. IMPRESSION: Enlarged prostate. Advanced changes of degenerative disc disease at L5-S1. Reviewed, Interpreted and Dictated by Beny Calderon MD Transcribed by Luiza Bailey Authenticated and [facility]
[2024-11-20] MEDS: SODIUM CHLORIDE 0.9% 10ML SYR (RAD ONLY) 10 ML IV (09:51)
[2024-11-20] MEDS: IOPAMIDOL-370 (76%);100ML BOTTLE 75 ML IV (09:51)
== END 2024-11-20 23:59 | disposition home or self-care (01) ==
PROVIDERS: Visit Provider Nurse Practitioner
DX: I51.7 Cardiomegaly (principal); I34.0 Nonrheumatic mitral (valve) insufficiency; I35.1 Nonrheumatic aortic (valve) insufficiency; I36.1 Nonrheumatic tricuspid (valve) insufficiency; R14.0 Abdominal distension (gaseous)
CPT/HCPCS: 74177; 93306; Q9967

== ENCOUNTER 2024-11-20 10:00 | Outpatient (RCR) | payer MEDICARE, OTHER, SELFPAY | END 2024-11-20 23:59 | disposition home or self-care (01) | LOC: PT 10:00 | PROVIDERS: Visit Provider Family Medicine | DX: I89.0 Lymphedema, not elsewhere classified (principal) | CPT/HCPCS: 97140; 97163; 97760 ==

== ENCOUNTER 2024-12-02 09:54 | Outpatient (RCR) | payer MEDICARE, OTHER, SELFPAY | END 2024-12-02 23:59 | disposition home or self-care (01) | LOC: PT 09:54 | PROVIDERS: Visit Provider Family Medicine | DX: I89.0 Lymphedema, not elsewhere classified (principal) | CPT/HCPCS: 97140; 97164 ==

== ENCOUNTER 2024-12-11 08:43 | Day surgery (SDC) | payer MEDICARE, OTHER, SELFPAY ==
[2024-12-09 13:02] VITALS: BMI 31.0
[2024-12-11 09:37] VITALS: BP 130/84; PULSE 99; RESP 18; TEMP 36.8; O2SAT 97
[2024-12-11] MEDS: LACTATED RINGERS 1000ML 1,000 ML 25 ML IV (09:48)
--- NOTE | 2024-12-11 10:06 | ECG_ITS ---
APPROVED REPORT Exam: Resting ECG HR:78 bpm ECG Measurements Heart Rate 78 AXES WA 156 P 16 QRSd 108 QRS -19 QT 378 T 0 QTc 412 Conclusion SINUS RHYTHM NORMAL ECG UNCONFIRMED REPORT Electronically signed by : Lang Grigsby MD 12/12/2024 09:18:49
--- NOTE | 2024-12-11 11:07 | EXP.ANES.CKL ---
[facility] Disclaimer: The information contained in this section may have been updated after the patient was seen, as this information can be updated by other users. Medical History Asthma Preventative health care LV dysfunction Restrictive lung disease Pulmonary fibrosis, unspecified ILD (interstitial lung disease) Chest tightness Dyspnea on exertion GERD (gastroesophageal reflux disease) SOB (shortness of breath) Sinusitis Surgical History History of cardiac cath History of removal of cyst History of right shoulder replacement History of tonsillectomy History of appendectomy History of cholecystectomy History of thyroid surgery Family History Other Diabetes Heart disease Hypertension Social History Smoking Status: Never smoker alcohol intake: never substance use type: denies use current occupational status: retired Travel in the last 8 weeks: None household members: family housing: house current occupation: concrete mixing truck driver current occupational exposures/hazards: No caffeine: Yes Have you lived/traveled outside [place] in past 30 days?: No Contact w/someone who lives/traveled outside [place] past 30 days?: No Exposure to someone with infectious disease in past 14 days?: No Do you have a fever (greater than 100.4 F or 38 C)?: No Have you tested positive for COVID-19: Yes Exposed to someone with COVID-19 in past 14 days?: No Do you have a sore throat?: No Do you have a cough?: No Do you have any weakness?: No Are you experiencing any nausea/vomitting?: No Do you have any diarrhea?: No Are you experiencing any unusual bleeding?: No Do you have any muscle aches/pain?: No Do you have any abdominal pain?: No Are you experiencing loss of taste or smell?: No [facility] Anesthesia Checklist Patient Identification Patient Identification: Arm Band and Verbal (Name & ) Structural Data Admitted From: Home Planned Operative Procedure/s: Colonoscopy Consent for Planned Operative Procedure(s) Verified: Yes Verified Documents: Surgical Consent and History and Physical NPO Status Verified Time NPO: 00:00 Chart Verification Results Verified: ECG Additional verifications Anesthesia Reactions: No Hx Blood Transfusions: No Airway Assessment Mallampati Score:: Class III C-Spine Mobility Assessed: Yes TMJ Mobility Assessed: Yes Dentition: Poor Dentition Neurological Assessment Level of Consciousness: Awake Hx Seizures: No Numbness or tingling in extremities: No Anesthesia Plan Anesthesia Risk discussed: Yes Anesthesia Plan: Verified ASA Class: III Anesthesia Type: MAC
[2024-12-11 11:08] VITALS: O2SAT 96
--- NOTE | 2024-12-11 11:18 | P.HP_ITS ---
History of Present Illness *Admission Date: 12/11/24 *Reason for visit:: Personal history of colon polyps *History of present illness: Mr. Palacios is a 69-year-old gentleman who is here for surveillance colonoscopy secondary to a personal history of adenomatous colon polyps and last colonoscopy was 5 to 6 years ago at which time 1 or 2 polyps were removed. The examination is deemed medically necessary for surveillance colonoscopy. The patient has been seen, interviewed and examined prior to the procedure by both myself and the anesthesia provider. [facility] Disclaimer: The information contained in this section may have been updated after the patient was seen, as this information can be updated by other users. Medical History Asthma Preventative health care LV dysfunction Restrictive lung disease Pulmonary fibrosis, unspecified ILD (interstitial lung disease) Chest tightness Dyspnea on exertion GERD (gastroesophageal reflux disease) SOB (shortness of breath) Sinusitis Surgical History History of cardiac cath History of removal of cyst History of right shoulder replacement History of tonsillectomy History of appendectomy History of cholecystectomy History of thyroid surgery Family History Other Diabetes Heart disease Hypertension Social History Smoking Status: Never smoker alcohol intake: never substance use type: denies use current occupational status: retired Travel in the last 8 weeks: None household members: family housing: house current occupation: truck dock material mover current occupational exposures/hazards: No caffeine: Yes Have you lived/traveled outside US in past 30 days?: No Contact w/someone who lives/traveled outside US past 30 days?: No Exposure to someone with infectious disease in past 14 days?: No Do you have a fever (greater than 100.4 F or 38 C)?: No Have you tested positive for COVID-19: Yes Exposed to someone with COVID-19 in past 14 days?: No Do you have a sore throat?: No Do you have a cough?: No Do you have any weakness?: No Are you experiencing any nausea/vomitting?: No Do you have any diarrhea?: No Are you experiencing any unusual bleeding?: No Do you have any muscle aches/pain?: No Do you have any abdominal pain?: No Are you experiencing loss of taste or smell?: No Other Medical History Have you received the Flu Vaccine for this season: No Have you received the Pneumonia Vaccine: No Review of Systems Review of Systems Review of systems (narrative): Negative *Cardiovascular Comments: Negative *Gastrointestinal Comments: Negative *Genitourinary Comments: Negative *Musculoskeletal Comments: Negative *Neurologic Comments: Negative Meds Home Medications and Allergies Home Medications ?Medication ?Instructions ?Recorded ?Confirmed ?Type sildenafil (pulm.hypertension) 20 20 mg PO DAILY PRN hpertension 01/17/23 12/09/24 History mg tablet aspirin 81 mg tablet,delayed 81 mg PO DAILY Heart disease #90 04/17/23 12/09/24 Rx release (Adult Low Dose Aspirin) tabs clopidogrel 75 mg tablet (Plavix) 75 mg PO DAILY #90 tabs 07/23/23 12/09/24 Rx atorvastatin 80 mg tablet (Lipitor) 80 mg PO DAILY Cholesterol #90 tabs 08/20/23 12/09/24 Rx albuterol sulfate 90 mcg/actuation 2 puff inhalation Q4-6H PRN 11/07/23 12/09/24 Rx aerosol inhaler shortness of breath or wheezing #8.5 grams diclofenac sodium 1 % topical gel 4 g topical QID PRN pain #100 grams 11/13/23 12/09/24 Rx (Voltaren Arthritis Pain) finasteride 5 mg tablet 5 mg PO DAILY 11/13/23 12/09/24 History tamsulosin 0.4 mg capsule 0.4 mg PO DAILY 11/13/23 12/11/24 History alfuzosin 10 mg tablet,extended 10 mg PO DAILY 05/27/24 12/11/24 History release 24 hr bisoprolol fumarate 5 mg tablet 5 mg PO QHS htn #90 tabs 06/23/24 12/11/24 Rx isosorbide mononitrate 30 mg 30 mg PO DAILY #30 tabs 06/23/24 12/09/24 Rx tablet,extended release 24 hr hydrocodone 5 mg-acetaminophen 325 1 tab PO Q4H PRN Postop pain #18 08/25/24 12/09/24 Rx mg tablet tabs potassium chloride 10 mEq 10 meq PO ONCE 08/27/24 12/11/24 History tablet,extended release sodium,potassium,mag sulfates 17.5 See Rx Instructions PO .COMPLEX 12/01/24 12/04/24 Rx gram-3.13 gram-1.6 gram oral soln #354 mL (Suprep Bowel Prep Kit) New Prescriptions to Start Prescriptions: Allergies Allergy/AdvReac Type Severity Reaction Status Date / Time No Known Allergies Allergy Verified 12/11/24 09:32 Exam Data for Last 24 hours Vital signs and Labs for Last 24 Hours: Temp Pulse Resp BP Pulse Ox O2 Del Method O2 Flow Rate 98.3 F 99 H 18 130/84 97 Nasal Cannula 5 12/11/24 09:37 12/11/24 09:37 12/11/24 09:37 12/11/24 09:37 12/11/24 09:37 12/11/24 11:08 12/11/24 11:08 I & O for Last 24 hours: Intake & Output 12/08/24 12/09/24 12/10/24 12/11/24 23:59 23:59 23:59 23:59 Weight 229 lb *Routine HEENT Exam Head: Present normocephalic Eye: Present EOMI and PERRL ENT: Present mucous membranes moist *Routine Neck Exam Neck: Present supple *Routine Respiratory Exam Respiratory: Present CTA bilaterally *Routine Cardiovascular Exam Cardiovascular: Present RRR *Routine Abdominal Exam Abdominal: Present soft and normoactive bowel sounds; Absent tenderness *Routine Rectal Exam Rectal:: deferred *Routine Genitalia Exam Genitalia:: deferred *Routine Extremities Exam Extremities: Absent cyanosis, clubbing or edema *Routine Skin Exam Skin: Present warm; Absent rash *Routine Neurological Exam Neurological: Present alert and oriented X3 Assessment and Plan *Assessment and plan (1) Personal history of adenomatous and serrated colon polyps: Status: Acute Category: Medical Code(s): Z86.0101 - Personal history of adenomatous and serrated colon polyps Plan A/P: 1. Personal history of adenomatous colon polyps is the preprocedural diagnosis. The patient will be anesthetized/sedated using MAC sedation. The patient has been seen and examined. Cardiac and lung assessment prior to the examination is stable. Proceed with planned surveillance colonoscopy
--- NOTE | 2024-12-11 11:19 | P.PCN_ITS ---
[facility] Procedure Note Date: 12/11/24 Time: 11:36 Procedure Note:: Colonoscopy Procedure Report: Colonoscopy with cold snare polypectomy Endoscopist: Hesham Mcqueen II, MD Referring physician: Mike Abbott MD [address] [place] [address] [address] [address] Date of Procedure: December 11, 2024 Equipment: Olympus 190 variable stiffness pediatric colonoscope Sedation: MAC sedation Indication: Mr. Palacios is a 69-year-old gentleman with a personal history of adenomatous colon polyps. His last colonoscopy was 5 or 6 years ago at [facility] at which time a single polyp (tubular adenoma) was removed. He reports no abdominal pain, weight loss, change in his bowel habits or rectal bleeding. He reports no family history of colon cancer. Procedure: Prior to the procedure, a history and physical exam was performed, and patient's medications and allergies were reviewed. The risks, benefits and alternatives of the sedation and procedure were discussed with the patient. All questions were answered and informed consent was obtained. The patient was brought to the procedure room. Patient identification and proposed procedure were verified by the physician and the nurse. The patient was placed in a left lateral decubitus position and the scope was passed under direct vision. Throughout the procedure, the patient's blood pressure, pulse, and oxygen saturations were monitored continuously. The colonoscopy was accomplished without difficulty. The patient tolerated the procedure well. Findings: On digital rectal examination there was normal rectal tone. There were no external hemorrhoids. The prostate was 2+, smooth, soft, symmetric without nodules. The colonoscope was introduced through the anal canal to the rectum and advanced to the cecum. The ileocecal valve and appendiceal orifice were identified. The scope was advanced a short distance into the ileum which appeared grossly normal. The scope was then withdrawn into the colon. There were 4 polyps (ascending x 2 (3 and 4 mm), descending x 1 (6 mm) and sigmoid x 1 (3 to 4 mm)). These were all removed via cold snare polypectomy. The remaining cecum, ascending, transverse, descending, sigmoid and rectum were grossly normal. There were no mucosal abnormalities identified. Upon retroflexion within the rectum there were grade 2-3 internal hemorrhoids.The preparation was excellent throughout with Malone Preparation Score of 9. The cecal time was 12 minutes. Impression: 1. Diminutive colonic polyps x 4 2. Grade 2-3 internal hemorrhoids Plan: I will follow-up the polyp histology and recommend repeat surveillance colonoscopy again in 5 years based upon the pathology. I would encourage psyllium bulking fiber supplementation on a maintenance basis.
[2024-12-11 11:40] VITALS: BP 111/70; PULSE 79; RESP 16; TEMP 36.3; O2SAT 97
[2024-12-11 11:50] VITALS: BP 119/75; PULSE 80; RESP 17; O2SAT 99
[2024-12-11 12:00] VITALS: BP 134/87; PULSE 81; RESP 18; O2SAT 96
[2024-12-11 12:10] VITALS: BP 132/81; PULSE 80; RESP 18; O2SAT 97
== END 2024-12-11 11:45 | disposition home or self-care (01) ==
PROVIDERS: Visit Provider Internal Medicine Gastroenterology
PROC: (CPT 45385; principal; 2024-12-11 10:30)
DX: K63.5 Polyp of colon (principal); K64.8 Other hemorrhoids; Z86.0101 Personal history of adenomatous and serrated colon polyps
CPT/HCPCS: 45385; 93005; J7120

== ENCOUNTER 2025-08-06 13:27 | Outpatient (CLI) | payer MEDICARE, OTHER, SELFPAY ==
--- NOTE | 2025-08-06 13:36 | XR_ITS ---
FINAL REPORT CLINICAL HISTORY: RIGHT SHOULDER PAIN AND NECK PAIN COMPARISON: 01/05/2020 FINDINGS: Three views of the right shoulder were obtained. There has been interval reverse shoulder arthroplasty. The hardware is intact. There is no acute fracture or dislocation. Soft tissues are unremarkable. IMPRESSION: Postoperative changes without acute abnormality. Reviewed, Interpreted and Dictated by Agnes Frausto MD Transcribed by Mallika Arteaga Authenticated and [facility]
--- NOTE | 2025-08-06 13:36 | XR_ITS ---
FINAL REPORT CLINICAL HISTORY: Neck, bilateral shoulder pain COMPARISON: None FINDINGS: CERVICAL SPINE Five views were obtained. There is an exaggerated kyphosis of the cervical spine. There is a mild compression deformity of C7. Vertebral body height is otherwise preserved. There is multilevel degenerative disc disease most pronounced at C6-7 and C7-T1. The precervical soft tissues are normal. IMPRESSION: Mild compression deformity of C7, age-indeterminate but favored chronic. Multilevel degenerative disc disease. Reviewed, Interpreted and Dictated by Agnes Frausto MD Transcribed by Mallika Arteaga Authenticated and [facility]
== END 2025-08-06 23:59 | disposition home or self-care (01) ==
LOC: RAD 13:30
PROVIDERS: PCP Family Medicine; Visit Provider Nurse Practitioner Family
DX: M50.33 Other cervical disc degeneration, cervicothoracic region (principal); M50.323 Other cervical disc degeneration at C6-C7 level; M40.202 Unspecified kyphosis, cervical region; Z96.611 Presence of right artificial shoulder joint
CPT/HCPCS: 72050; 73030

== ENCOUNTER 2025-08-18 09:02 | Outpatient (CLI) | payer MEDICARE, OTHER, SELFPAY ==
[2025-08-18 09:18] LABS: Hematocrit 42.0 % (42.0-52.0); Hemoglobin 14.8 g/dL (14.1-18.0); Immature Granulocytes % 0.2 %; Mean Corpuscular HGB Conc 35.2 g/dL (31.8-35.4); Mean Corpuscular Hemoglobin 32.3 pg (27.0-31.2); Mean Corpuscular Volume 91.7 fl (80-94); Nucleated Red Blood Cells % 0 %; Platelet Count 180 K/mm3 (142-424); Red Blood Count 4.58 M/mm3 (4.60-6.20); Red Cell Distribution Width-SD 42.4 fL; White Blood Count 4.2 K/mm3 (4.8-10.8)
--- OUTSIDE RECORDS SUMMARY | 2025-08-18 09:20 | XMS_ITS | Patient Health Record ---
Author Organization [facility] Address [address] [facility] [address] [place] [id number] Care Team Providers Care Rest Room Maid Name Role Phone Greg Ham Primary Care Provider Reason For Referral No Information Medications Medication SIG (Take, Route, Frequency, Duration) Notes Start Date End Date Status Crestor 20 MG 1 tab(s) orally once a day; Duration: 90 Active Amoxicillin 875 MG 1 tab(s) orally ever y 12 hours; Duration: 10 day(s) Active Iuzepqipv-Xujscpzv-MI 30-2-10 MG/5ML 5-10 ml orally 4 times a day, prn Active HYDROcodone-Acetaminophen 7.5-325 MG 1 tab(s) orally every 6 hours Active Finasteride 5 MG 1 tab(s) orally once a day; Duration: 30 day(s) Active Immunizations Vaccine Route Administration Date Status Comme nts Tetanus Tdap-Adacel (over 7yrs) IM Intramuscular 01/06/2019 Administered Problems Problem Type SNOMED Code ICD Code Onset Dates Problem Status W/U Status Risk Notes Problem Hypercalcemia (52763741) Hypercalcemia (E83.52) Active confirmed Problem Gastroesophageal reflux disease without esophagitis (497176644) Gastroesophageal reflux disease without esophagitis (K21.9) Active confirmed Problem Thrombocytopenia (876632292) Thrombocytopenia (D69.6) Active confirmed Problem Dyslipidemia (139177740) Dyslipidemia (E78.5) Active confirmed Problem Atherosclerotic hear t disease of [place] coronary artery without angina pectoris (185865193494851) Atherosclerosis of [place] coronary artery without angina pectoris, unspecified whether kas[place] or transplanted heart (I25.10) Active confirmed Problem Pure hypercholesterolemia (552535789) Pure hypercholesterolemia (E78.00) Active confirmed Problem Enlarged prostate (959767268) Enlarged prostate (N40.0) Active confirmed Plan Of Treatment No Information Insurance Providers Payer Name Payer Address Payer Phone Subscriber Number Group Number Insured Name Patient Relationship to Insured Coverage Start Date Coverage End Date [employer] [address] [place] [address] [id number] JESUS PALACIOS Self - patient is the insured Medications Administered Medication Instructions Date of Administration Dosage Notes celestone 08/03/2018 1 mL Dexamethasone 10/18/2019 1.5 mL Dexamethasone 11/15/2019 1 mL Medical (General) History Medical History History ICD Code Coronary Artery Disease, non obstructive as of 2016 hyperlipidemia allergic rhinitis Hiatal hernia gall bladder disease, s/p cholecystectom y right shoulder replacement Surgical History Surgery Date(Month/Year) cholecystectomy - [facility] 12/2016 Left Heart Cath, non obstructive CAD- [facility] 2016 right shoulder replacement-Dr [facility] 04/13/2020 parathyroid partial gland removal-Dr Kati Almonte 09/08/2020 Hospitalization History Reason Date(Month/Year) above surgery [facility] ER 10/18
--- OUTSIDE RECORDS SUMMARY | 2025-08-18 09:20 | XMS_ITS | Clinical Summary ---
Author Organization Healthcare Address [address] [place] [address] Care Team Providers Care Knife Machine Operator Name Role Phone Pcp, No Primary Care Provider Unavailabl e Family History Medical History Relation Name Comments Cardiac disorder Father Cirrhosis Father Cardiac disorder Mother Cirrhosis Mother Relation Name Status Comments Father Mother Social History Tobacco Use Types Packs/Day Years Used Date Smoking Tobacco: Never Alcohol Use Standard Drinks/Week Comments Yes 0 (1 standard drink = 0.6 oz pure alcohol) Alcoholic Drinks/day: Social alcohol use Sex and Gender Information Value Date Recorded Sex Assigned at Not on file Legal Sex Male 6:16 PM EDT Gender Identity Not on file Sexual Orientation Not on file Last Filed Vital Signs Vital Sign Reading Time Taken Comments Blood Pressure 114/77 05/31/2023 3:09 PM EDT Pulse - - Temperature - - Respiratory Rate - - Oxygen Saturation - - Inhaled Oxygen Concentration - - Weight 98.9 kg (218 lb) 05/31/2023 3:09 PM EDT Height 193 cm (6' 4 ) 05/31/2023 3:09 PM EDT Body Mass Index 26.54 05/31/2023 3:09 PM EDT Plan of Treatment Health Maintenance Due Date Last Done Comments [facility]-Depression Screening 1957 [facility]-/Child/Adol SDOH Screenings 1955 [facility]- SDOH Screenings 1975 [facility]-Adult SDOH Screenings 1975 CT Colonography 2002 Colonoscopy 2002 FIT-DNA 2002 FIT 2002 FOBT 2002 Sigmoidoscopy 2002 [facility]-Colorectal Cancer Screening 2002 [facility]-Pneumococcal Vaccine: 50 + Years (1 of 1 - PCV) 2007 [facility]-Zoster Vaccines (1 of 2) 2007 DMB-VCPEH-06 Vaccine (1 - 20 24-25 season) 2025 [facility]-Influenza Vaccine (#1) 2025 [facility]-DTaP,Tdap,and Td Vaccine s (2 - Td or Tdap) 01/06/2029 01/06/2019 [facility]-RSV Vaccine: 60+ Years o r (1 - 1-dose 75+ series) 2032 HPV Vaccines Aged Out No longer eligi ble based on patient's age to complete this topic [facility]-HIB Vaccines Aged Out No longer e ligible based on patient's age to complete this topic [facility]-Hepatitis A Vaccines Aged Out No longer eligible based on patient's age to complete this topic [facility]-IPV Vaccines Aged Out No longer e ligible based on patient's age to complete this topic [facility]-Rotavirus Vaccines Aged Out No lo nger eligible based on patient's age to complete this [place] [address] Care Teams Knife Machine Operator Relationship Specialty Start Date End Date Pcp, Bridget [address] [place] [address] PCP - General Family Medicine 11/26/22
--- OUTSIDE RECORDS SUMMARY | 2025-08-18 09:20 | XMS_ITS | Clinical Summary ---
Author Organization [facility] Address [address] [place] [address] Care Team Providers Care Dipper Operator Name Role Phone Gerardo Amezquita MD Primary Care Provider Allergies No known active allergies Medications finasteride (PROSCAR) 5 MG tablet Take 5 mg by mouth Daily. Active cholecalciferol (VITAMIN D3) 25 MCG (1000 UT) tablet Take 1 tablet by mouth Daily. 30 tablet 2 04/15/2020 Active docusate sodium 100 MG capsule Take 100 mg by mouth 2 (Two) Times a Day. 40 each 04/14/2020 Active HYDROcodone-teofilo taminophen (Wade) 7.5-325 MG per tabletIndicatio ns:Rotator cuff tear arthropathy, right Take 1 tablet by mouth Every 6 (Six) Hours As Needed for Moderate Pain . 10 tablet 09/08/2020 Active Active Problems Problem Noted Date Diagnosed Date Vitamin D deficiency 04/14/2020 Hyperparathyroidism, primary 04/14/2020 Rotator cuff tear arthropathy, right 04/13/2020 Hypercalcemia 04/13/2020 GERD (gastroesophageal reflux disease) 0 Hyperlipidemia 04/13/2020 Status post reverse total shoulder replacement, right 04/13/2020 Social History Tobacco Use Types Packs/Day Years Used Date Smoking Tobacco: Never Smokeless Tobacco: Never Alcohol Use Standard Drinks/Week Comments Not Currently 0 (1 standard drink = 0.6 oz pur e alcohol) Abuse Screen Answer Date Recorded Unsafe at Home or Work/School Not on file Feels Threatened by Someone? Not on file 07/2023 Does Anyone Keep You from Co ntacting Others or Doint Things Outside the Home? Not on file 09/03/2023 Physical Sign of Abuse Present Not on file 1 Housing Stability Answer Date Recorded Current Living Arrangements Not on file 07/2023 Potentially Unsafe Housing Conditions Not on vance e 09/03/2023 Family and Community Support Answer Mauricio e Recorded Help with Day-to-Day Activities Not on file 09/03/2023 Lonely or Isolated Not on file 09/03/2023 Employment Answer Date Recorded Do you want help finding or keeping work or a dhaval b? Not on file 09/03/2023 Disabilities Answer Date Recorded Concentrating, Remembering, or Making Decisions Difficulty Not on file 09/03/2023 Doing Errands Independently Difficulty Not on fi le 09/03/2023 Education Answer Date Recorded Help with school or training? Not on file Preferred Language Not on file 09/03/2023 Sex and Gender Information Value Date Recorded Sex Assigned at Not on file Legal Sex Male 12:38 PM EDT Gender Identity Not on file Sexual Orientation Not on file Last Filed Vital Signs Vital Sign Reading Time Taken Comments Blood Pressure 149/75 09/08/2020 1:30 PM EDT Pulse 80 09/08/2020 1:30 PM EDT Temperature 36.6 C (97.8 F) 09/08/2020 1:30 PM EDT Respiratory Rate 16 09/08/2020 1:30 PM EDT Oxygen Saturation 95% 09/08/2020 1:30 PM EDT Inhaled Oxygen Concentration - - Weight 90.7 kg (200 lb) 09/08/2020 9:02 AM EDT Height 193 cm (6' 4 ) 09/08/2020 9:02 AM EDT Body Mass Index 24.34 09/08/2020 9:02 AM EDT Plan of Treatment Health Maintenance Due Date Last Done Comments LIPID PANEL 1955 COLOGUARD 2002 COLON CANCER SCREENING 5 YEAR SIGMOIDOSCOPY 2002 COLONOSCOPY 2002 COLORECTAL CANCER SCREENING 2002 CT COLONOGRAPHY 2002 FECAL OCCULT BLOOD TEST 2002 FIT Testing (1 year) 2002 Pneumococcal Vaccine 50+ (1 of 1 - PCV) 2007 ZOSTER VACCINE (1 of 2) 2007 ANNUAL PHYSICAL 04/07/2020 HEPATITIS C SCREENING 04/07/2020 AAA SCREEN ONCE 2022 INFLUENZA VACCINE 06/26/2025 COVID-19 Vaccine ( season) 2025 TDAP/TD VACCINES (2 - Td or Tdap) 01/06/2029 019 Medical Devices Implanted Type Area Experimental Plastics Fabricator Device Identifier Shelf Expiration Date Model / Serial / Lot Stem Hum Equinoxe Preserve 7mm - [id number] - [id number] Implanted:Qty : 1 on 04/13/2020 by Maxx Reyes Jr., MD at [facility] Implant EXACTECH 06/17/2029 [id number] / [id number] / N/A Try Hum Equinoxe Adpt Rev Shldr Pls0 - [id number] - [id number] Implanted:Qty : 1 on 04/13/2020 by Maxx Reyes Jr., MD at [facility] Implant Right: Shoulder EXACTECH 01/13/2030 [id number] / [id number] / N/A Scrw Equinoxe Torq Define Rev Shldr Kt - [id number] - [id number] Implanted:Qty : 1 on 04/13/2020 by Maxx Reyes Jr., MD at [facility] Implant Right: Shoulder EXACTECH 12/01/2024 [id number] / [id number] / N/A Liner Hum Equinoxe Rev Shldr 42 Pls0 - [id number] - [id number] Implanted:Qty : 1 on 04/13/2020 by Maxx Reyes Jr., MD at [facility] Implant Right: Shoulder EXACTECH 12/13/2024 [id number] / [id number] / N/A Totl Shldr Rev Ttl Exactech - [id number] Implanted:Qty : 1 on 04/13/2020 by Maxx Reyes Jr., MD at [facility] Implant EXACTECH CAPSHOUDREVEXA CTT L / / Totl Shldr Aug Plt Arthroplasty Upchrg - [id number] Implanted:Qty : 1 on 04/13/2020 by Maxx Reyes Jr., MD at [facility] Implant EXACTECH CAPSHOULTOTUP HRG EXAC / / Plt Juventino Equinoxe Aug Supr Post Rev Rt - [id number] Implanted:Qty : 1 on 04/13/2020 by Maxx Reyes Jr., MD at [facility] Implant Right: Shoulder EXACTECH 09/23/2029 [id number] / / [id number] Scrw Compr Equinoxe Lk 4.5x46mm - [id number] Implanted:Qty : 1 on 04/13/2020 by Maxx Reyes Jr., MD at [facility] Implant Right: Shoulder EXACTECH 01/06/2024 [id number] / / [id number] Scrw Compr Equinoxe Lk 4.5x34mm - [id number] Implanted:Qty : 1 on 04/13/2020 by Maxx Reyes Jr., MD at [facility] Implant Right: Shoulder EXACTECH 10/15/2024 [id number] / / [id number] Scrw Compr Equinoxe Lk 4.5x22mm - [id number] Implanted:Qty : 1 on 04/13/2020 by Maxx Reyes Jr., MD at [facility] Implant Right: Shoulder EXACTECH 12/03/2024 [id number] / / [id number] Scrw Compr Equinoxe Lk 4.5x18mm - [id number] Implanted:Qty : 1 on 04/13/2020 by Maxx Reyes Jr., MD at [facility] Implant Right: Shoulder EXACTECH 09/29/2024 [id number] / / [id number] Glenosphere Equinoxe Rev Shldr 42mm - [id number] - [id number] Implanted:Qty : 1 on 04/13/2020 by Maxx Reyes Jr., MD at [facility] Implant Right: Shoulder EXACTECH 09/02/2029 [id number] / [id number] / N/A Scrw Equinx Glenosphere Lk - [id number] - [id number] Implanted:Qty : 1 on 04/13/2020 by Maxx Reyes Jr., MD at [facility] Implant Right: Shoulder EXACTECH 12/28/2024 [id number] / [id number] / N/A Kt Hemost Abs Surgifoam Porcn 1gram - [id number] Implanted:Qty : 1 on 09/08/2020 by Edison Priest MD at [facility] Implant N/A: Parathyroid ETHICON DIV OF J AND J 11/05/2021 [id number] / / [id number] Clipapplr M/ Endo Ligaclip 9 3/8in - [id number] Implanted:Qty : 1 on 09/08/2020 by Edison Priest MD at [facility] Implant N/A: Parathyroid ETHICON ENDO SURGERY DIV OF J AND J 05/25/2025 [id number] / / [id number] Clipapplr M/ Endo Ligaclip9 3/8in Md - [id number] Implanted:Qty : 1 on 09/08/2020 by Edison Priest MD at [facility] Implant N/A: Parathyroid ETHICON ENDO SURGERY DIV OF J AND J 01/23/2025 [id number] / / [id number] Explanted Type Area Experimental Plastics Fabricator Device Identifier Shelf Expiration Date Model / Serial / Lot Wr K Equinoxe Glenoid Nitnl [id number] - [id number] Explanted:Qty : 1 on 04/13/2020 at [facility] Implant Right: Shoulder EXACTECH 10/19/2027 [id number] / / [id number] [place] [address] [facility] PPO [place] [facility] [facility] WORKERS COMPENSATION Advance Directives * CPR (Attempt to Resuscitate) (Latest Code Status on File) Date Activated Date Inactivated Comments 04/13/2020 2:19 PM 04/14/2020 8:05 PM Question Answer Comments Code Status (Patient has no pulse and is not breathing): CPR (Attempt to Resuscitate) Medical Interventions (Patie nt has pulse or is breathing): Full Level Of Support Discussed With: Patient Care Teams Dipper Operator Relationship Specialty Start Date End Date Gerardo Amezquita MD [address] [facility] [address] [address] PCP - General Family Medicine 04/07/20
[2025-08-18 10:07] LABS: Albumin Level 4.0 g/dl (3.5-5.0); Chloride 101 mmol/L (98-107); Potassium 3.9 mmoL/L (3.5-5.1); Sodium 138 mmol/L (136-145)
[2025-08-18 10:09] LABS: Bilirubin,Unconjugated 0.9 mg/dL (0.0-1.1); Blood Urea Nitrogen 11 mg/dl (9-20); Creatinine,Serum 0.80 mg/dl (0.66-1.25); Estimated Glomerular Filt Rate 96 ml/min (>60); GFR (African American) 116 ML/MIN (>60)
[2025-08-18 10:10] LABS: Alanine Aminotransferase 23 U/L (12-78); Alkaline Phosphatase 89 U/L (38-126); Anion Gap 11.9 mEq/L (5-15); Aspartate Amino Transferase 24 U/L (17-59); Bilirubin,Direct 0.1 mg/dl (0.0-0.4); Bilirubin,Indirect 0.9 mg/dL (0.0-0.9); Bilirubin,Total 1.0 mg/dl (0.2-1.3); Calcium 9.4 mg/dl (8.4-10.2); Carbon Dioxide 29 mmol/L (22.0-30.0); Cholesterol 141 mg/dl (140-200); Glucose 96 mg/dl (74-100); HDL Cholesterol 41 mg/dl (40-60); Magnesium 1.9 mg/dl (1.6-2.3); Total Protein,Serum 5.9 g/dl (6.3-8.2); Triglycerides 114 mg/dl (30-150)
[2025-08-18 10:39] LABS: Thyroid Stimulating Hormone 1.28 uIU/mL (0.465-4.68)
[2025-08-18 19:27] LABS: Free T4 (Free Thyroxine) 0.99 ng/dl (0.78-2.19)
== END 2025-08-18 23:59 | disposition home or self-care (01) ==
LOC: LAB 09:05
PROVIDERS: PCP Family Medicine; Visit Provider Physician Assistant
DX: I25.10 Atherosclerotic heart disease of native coronary artery without angina pectoris (principal); E78.5 Hyperlipidemia, unspecified
CPT/HCPCS: 36415; 80048; 80061; 80076; 83735; 84439; 84443; 85025